=== PATIENT | female | born 1970 | race Caucasian/White ===

== ENCOUNTER 2020-05-06 19:53 | Inpatient (IN) ==
[2020-05-06 20:11] VITALS: BMI 35.4
--- NOTE | 2020-05-06 20:25 | DR.SOBA ---
HPI <ROSMERY JACOBO - Last Filed: 05/08/20 04:56> Time Seen Time Seen by Provider: 05/06/20 20:25 Primary Care Physician Primary Care Physician: ZHOU OROZCO HPI Comment HPI Comment: PATIENT IS 50 YR OLD FEMALE IS IN ER WITH INCREASING SOB, FEVER, COUGH AND CONGESTION. ALSO NAUSEA AND VOMITING. SHE TESTED POSITIVE YESTERDAY FOR COVID 19 VIRUS. ON DOXYCYCLINE AND DEXAMETHASONE. HER SOB IS GETTING IS WORSE. Complaints Chief Complaint Doctors Comments: FEVER, COUGH, CONGESTION, AND INCREASING SOB. COVID 19 VIRUS POSITIVE. Chief Complaint:: PATIENT TESTED POSITIVE FOR COVID YESTERDAY; PATIENT STATES SHORTNESS OF BREATH INCREASED TODAY; PATIENT STATES SHE HAS HAD A FEVER OF 101. PATIENT DENIES NAUSEA AND VOMITING. Self Treatment fo Chief Complaint: DEXAMETHASONE 4MG BID; LORATADINE 10MG DAILY; DOXYCYCLINE 100MG BID COVID-19 Coronavirus risk:travel/contact w/high risk person: No Has patient experienced Coronavirus symptoms: Yes Coronavirus symptoms experienced: Coughing Source History Provided: Patient Mode of Arrival Mode of Arrival: Wheelchair Timing Onset of Chief Complaint: 05/04/20 Duration Duration: Days Context Onset:: At Rest PE Risk Factors:: None History of:: None Currently on:: Neither Prehospital Care:: None Modifying Factors Worsens:: Exertion Improves:: Sitting Up Associated Signs and Symptoms Associated Signs and Symptoms: Fever, Wheeze, Cough and Chest Pain If Chest Pain Quality: Pleuritic Location: Substernal If Cough Cough: Productive and Yellow PMH <ROSMERY JACOBO - Last Filed: 05/08/20 04:56> PMH Past Medical History: Yes Past Medical History: Hypertension Past Surgical History: Yes Family History History of Family Medical Conditions: No Social History Alcohol Use: None Do you use any recreational Drugs:: No Lives With: Family Lives Where: Home Infectious screening Have you traveled outside the country in the last 6 months?: No Isolation: Droplet ROS <ROSMERY JACOBO - Last Filed: 05/08/20 04:56> Review of Systems Constitutional: See HPI, Fever, Weakness and Fatigue Eyes: No Symptoms Reported and See HPI; negative Blurred Vision and Diplopia ENTM: No Symptoms Reported, See HPI, Nose Discharge and Nose Congestion Respiratoy: No Symptoms Reported, See HPI, Productive Cough, Short of Breath and Wheezing Cardiovascular: No Symptoms Reported, See HPI and Chest Pain; negative Edema and Cyanosis Gastrointestinal/Abdominal: No Symptoms Reported and See HPI; negative Abdominal Pain, Diarrhea and Vomiting Genitourinary: No Symptoms Reported and See HPI; negative Dysuria, Frequency and Hematuria Neurological: See HPI, Headache and Weakness; negative Dizziness Musculoskeletal: See HPI, Back Pain and Muscle Pain Integumentary: No Symptoms Reported and See HPI; negative Change in Color, Rash and Juandice Hematologic/Lymphatic: No Symptoms Reported and See HPI; negative Easy Bruising and Swollen Glands Endocrine: No Symptoms Reported and See HPI; negative Increased Thirst, Increased Urine and Decreased Appetite Psychiatric: No Symptoms Reported and See HPI All Other Systems: Reviewed and Negative PE <ROSMERY JACOBO - Last Filed: 05/08/20 04:56> Vital Signs Vitals: Temperature 98.1 F Pulse Rate [Right Radial] 86 Pulse Rate 102 Respiratory Rate 24 Blood Pressure [Right Arm] 125/60 Blood Pressure 145/76 O2 Sat by Pulse Oximetry 90 General Limitations: No Limitations General Appearance: Alert and In Distress Head Head Exam: Normal Inspection and Atraumatic Eyes Eye exam: Normal Appearance and PERRL; negative Scleral Icterus and Conjunctival Injection ENT ENT Exam: Normal Exam, Normal Oropharynx, Normal External Ear Exam and TM's Normal Bilaterally Neck Neck Exam: Trachea Midline; negative Tenderness and Lymphadenopathy Chest Chest Inspection: Normal Inspection and Symmetric Chest Wall Rise Respiratory Respiratory Exam: negative Accessory Muscle Use, Chest Wall Tenderness and Respiratory Distress Cardiovascular Cardiovascular Exam: Normal Rhythm, Tachycardia and Normal Heart Sounds; negative Systolic Murmur and Diastolic Murmur Abdominal Exam Abdominal Exam: Normal Inspection, Normal Bowel Sounds and Soft; negative Tenderness Extremities Extremities Exam: Normal Inspection and Normal Capillary Refill; negative Tenderness, Edema and Calf Tenderness Back Back Exam: negative (R) CVA Tenderness, (L) CVA Tenderness and Paraspinal Tenderness Neurologic Neurological Exam: Alert, Oriented X3, CN II-XII Intact, Motor Sensory Deficit and Other (SLIGHT RT SIDED WEAKNESS FROM PREVIOUS STROKE.) Psychiatric Psychiatric Exam: Normal Affect and Anxious Skin Skin Exam: Warm, Dry, Intact and Normal Color; negative Cyanosis <Chadwick Bermudez - Last Filed: 05/07/20 08:57> Vital Signs Vitals: Temperature 98.1 F Pulse Rate [Right Radial] 86 Pulse Rate 102 Respiratory Rate 24 Blood Pressure [Right Arm] 125/60 Blood Pressure 145/76 O2 Sat by Pulse Oximetry 90 MDM <ROSMERY JACOBO - Last Filed: 05/08/20 04:56> Differential Diagnosis Differential Diagnosis: Bronchitis, CHF, Hyponatremia, Pneumonia, Pneumothorax, Pulmonary embolism, Respiratory Insufficiency, Sinusitis and URI Differential Diagnosis Comment:: COVID 19 VIRUS INFECTION, HYPERTENSION. COURSE <ROSMERY JACOBO - Last Filed: 05/08/20 04:56> Treatment Treatment: SEE ORDERS. ZOSYN 3.375MG, DUO NEN, NS 125MG IV, CLONIDINE 0.1MG. PATIENT OXYGEN MONITOR AND IS NOW PLACE ON NR MASK ON 100%. VITAL SIGNS REMAIN STABLE. SEE NURSING VITAL SIGN RECORD. NO BED CURRENTLY AVAILABLE IN THE HOSPITAL. AWITING CONFIRMATION FOR [facility] TO HAVE ER HOLD PATIENT PENDING BED OPENING. Reevaluation 1st: Improved (MONITORING OXYGGINATION BY ABG CHECK.) 2nd: Improved (VITAL SIGNS STABLE BUT BP INCREASING. CLONIDINE GIVEN.) Consultation Consultation Comments: AMITTED TO DR. MIRANDA. Education/Counseling Education/Counseling: Patient Educated On: Diagnosis ROR <ROSMERY JACOBO - Last Filed: 05/08/20 04:56> Labs Reviewed Laboratory Results Reviewed?: Yes Result Diagrams: 05/07/20 08:25 05/07/20 08:25 Laboratory: WBC 10.2 X10^3/uL (3.6-10.0) H 05/07/20 08:25 RBC 4.55 X10^6/uL (3.5-5.4) 05/07/20 08:25 Hgb 13.8 g/dL (12.0-16.0) 05/07/20 08:25 Hct 40.3 % (36.0-47.0) 05/07/20 08:25 MCV 88.6 fL (80.0-100.0) 05/07/20 08:25 MCH 30.4 pg (27.0-34.0) 05/07/20 08:25 MCHC 34.3 g/dL (33.0-35.0) 05/07/20 08:25 RDW 14.5 % (11.6-16.5) 05/07/20 08:25 Plt Count 257 X10^3/uL (150.0-450.0) 05/07/20 08:25 Plt Count Comment Adequate (ADEQUATE) 05/07/20 08:25 MPV 8.0 fL (7.4-11.0) 05/07/20 08:25 Neut % (Auto) 92.6 % (42.0-75.0) H 05/07/20 08:25 Lymph % (Auto) 6.1 % (21.0-51.0) L 05/07/20 08:25 [place] % (Auto) 1.2 % (0.0-13.0) 05/07/20 08:25 Eos % (Auto) 0.0 % (0.9-2.9) L 05/07/20 08:25 Baso % (Auto) 0.1 % (0.2-1.0) L 05/07/20 08:25 Neut # (Auto) 9.5 x10^3/uL (2.2-4.8) H 05/07/20 08:25 Lymph # (Auto) 0.6 X10^3/uL (1.3-2.9) L 05/07/20 08:25 [place] # (Auto) 0.1 x10^3/uL (0.3-0.8) L 05/07/20 08:25 Eos # (Auto) 0.0 x10^3/uL (0.0-0.2) 05/07/20 08:25 Baso # (Auto) 0.0 X10^3/uL (0.0-0.1) 05/07/20 08:25 Absolute Nucleated RBC 0.1 /100WBC 05/07/20 08:25 Total Counted 100 05/07/20 08:25 Neutrophils % (Manual) 85 % (39-76) H 05/07/20 08:25 Band Neutrophils % 3 % (0-10) 05/07/20 08:25 Lymphocytes % (Manual) 10 % (13-43) L 05/07/20 08:25 Monocytes % (Manual) 2 % (4-9) L 05/07/20 08:25 Plt Morphology Comment Normal (NORMAL) 05/07/20 08:25 RBC Morphology Normal (NORMAL) 05/07/20 08:25 Sample Site Lr 05/07/20 01:55 ABG pH 7.460 (7.35-7.45) H 05/07/20 01:55 ABG pCO2 41.0 mmHg (35.0-45.0) 05/07/20 01:55 ABG pO2 68.0 mmHg (80.0-100.0) L 05/07/20 01:55 ABG HCO3 29.2 mmol/L (22-26) H 05/07/20 01:55 ABG O2 Saturation 94.0 % (90-100) 05/07/20 01:55 ABG Base Excess 4.9 mmol/L (-2.0-2.0) H 05/07/20 01:55 [place] Test Pos 05/07/20 01:55 A-a Gradient 594.0 mmHg 05/07/20 01:55 FiO2 100.0 05/07/20 01:55 Blood Gas Comments Mary well ae 05/07/20 01:55 Sodium 139 mmol/L (136-145) 05/07/20 08:25 Corrected Sodium 141 mmol/L (136-145) 05/07/20 08:25 Potassium 3.6 mmol/L (3.5-5.1) 05/07/20 08:25 Chloride 100 mmol/L (98-107) 05/07/20 08:25 Carbon Dioxide 25.3 mmol/L (21-32) 05/07/20 08:25 BUN 12 mg/dL (7-18) 05/07/20 08:25 Creatinine 0.99 mg/dL (0.55-1.02) 05/07/20 08:25 Est GFR (MDRD) Af Amer > 60 (>60) 05/07/20 08:25 Est GFR (MDRD) Non-Af > 60 (>60) 05/07/20 08:25 Glucose 173 mg/dL (65-99) H 05/07/20 08:25 Lactic Acid 1.1 mmol/L (0.4-2.0) 05/06/20 23:20 Calcium 8.4 mg/dL (8.5-10.1) L 05/07/20 08:25 Corrected Calcium 9.3 mg/dL (8.5-10.1) 05/07/20 08:25 Total Bilirubin 0.60 mg/dL (0.2-1.0) 05/07/20 08:25 AST 49 Units/L (15-37) H 05/07/20 08:25 ALT 34 Units/L (12-78) 05/07/20 08:25 Alkaline Phosphatase 104 Units/L (46-116) 05/07/20 08:25 Creatine Kinase 67 Units/L (26-192) 05/07/20 08:25 CK-MB (CK-2) < 1.0 ng/mL (0-4.0) 05/07/20 08:25 CK/CKMB % Calc 1.5 % (<4) 05/07/20 08:25 Troponin I < 0.02 ng/mL (0-1.5) 05/07/20 08:25 Total Protein 7.1 g/dL (6.4-8.2) 05/07/20 08:25 Albumin 2.9 g/dL (3.4-5.0) L 05/07/20 08:25 Globulin 4.2 g/dL (2.5-4.5) 05/07/20 08:25 Albumin/Globulin Ratio 0.7 Ratio (1.1-2.1) L 05/07/20 08:25 HCG, Qual Negative <10 mIU/mL 05/06/20 21:00 SARS CoV-2 RNA Rapid MEGAN Positive (NEGATIVE) A 05/07/20 03:05 XRAY XRAY Interpreted by: Radiologist (reports noted and discussed with patient.) and Self EKG Rate: 95 Sellers: Normal Rhythm: NSR Block: None Hypertrophy: LAE and LVH ST: Nonsp <Chadwick Aidan - Last Filed: 05/07/20 08:57> Labs Reviewed Laboratory: WBC 10.2 X10^3/uL (3.6-10.0) H 05/07/20 08:25 RBC 4.55 X10^6/uL (3.5-5.4) 05/07/20 08:25 Hgb 13.8 g/dL (12.0-16.0) 05/07/20 08:25 Hct 40.3 % (36.0-47.0) 05/07/20 08:25 MCV 88.6 fL (80.0-100.0) 05/07/20 08:25 MCH 30.4 pg (27.0-34.0) 05/07/20 08:25 MCHC 34.3 g/dL (33.0-35.0) 05/07/20 08:25 RDW 14.5 % (11.6-16.5) 05/07/20 08:25 Plt Count 257 X10^3/uL (150.0-450.0) 05/07/20 08:25 Plt Count Comment Adequate (ADEQUATE) 05/07/20 08:25 MPV 8.0 fL (7.4-11.0) 05/07/20 08:25 Neut % (Auto) 92.6 % (42.0-75.0) H 05/07/20 08:25 Lymph % (Auto) 6.1 % (21.0-51.0) L 05/07/20 08:25 [place] % (Auto) 1.2 % (0.0-13.0) 05/07/20 08:25 Eos % (Auto) 0.0 % (0.9-2.9) L 05/07/20 08:25 Baso % (Auto) 0.1 % (0.2-1.0) L 05/07/20 08:25 Neut # (Auto) 9.5 x10^3/uL (2.2-4.8) H 05/07/20 08:25 Lymph # (Auto) 0.6 X10^3/uL (1.3-2.9) L 05/07/20 08:25 [place] # (Auto) 0.1 x10^3/uL (0.3-0.8) L 05/07/20 08:25 Eos # (Auto) 0.0 x10^3/uL (0.0-0.2) 05/07/20 08:25 Baso # (Auto) 0.0 X10^3/uL (0.0-0.1) 05/07/20 08:25 Absolute Nucleated RBC 0.1 /100WBC 05/07/20 08:25 Total Counted 100 05/07/20 08:25 Neutrophils % (Manual) 85 % (39-76) H 05/07/20 08:25 Band Neutrophils % 3 % (0-10) 05/07/20 08:25 Lymphocytes % (Manual) 10 % (13-43) L 05/07/20 08:25 Monocytes % (Manual) 2 % (4-9) L 05/07/20 08:25 Plt Morphology Comment Normal (NORMAL) 05/07/20 08:25 RBC Morphology Normal (NORMAL) 05/07/20 08:25 Sample Site Lr 05/07/20 01:55 ABG pH 7.460 (7.35-7.45) H 05/07/20 01:55 ABG pCO2 41.0 mmHg (35.0-45.0) 05/07/20 01:55 ABG pO2 68.0 mmHg (80.0-100.0) L 05/07/20 01:55 ABG HCO3 29.2 mmol/L (22-26) H 05/07/20 01:55 ABG O2 Saturation 94.0 % (90-100) 05/07/20 01:55 ABG Base Excess 4.9 mmol/L (-2.0-2.0) H 05/07/20 01:55 [place] Test Pos 05/07/20 01:55 A-a Gradient 594.0 mmHg 05/07/20 01:55 FiO2 100.0 05/07/20 01:55 Blood Gas Comments Mary well ae 05/07/20 01:55 Sodium 139 mmol/L (136-145) 05/07/20 08:25 Corrected Sodium 141 mmol/L (136-145) 05/07/20 08:25 Potassium 3.6 mmol/L (3.5-5.1) 05/07/20 08:25 Chloride 100 mmol/L (98-107) 05/07/20 08:25 Carbon Dioxide 25.3 mmol/L (21-32) 05/07/20 08:25 BUN 12 mg/dL (7-18) 05/07/20 08:25 Creatinine 0.99 mg/dL (0.55-1.02) 05/07/20 08:25 Est GFR (MDRD) Af Amer > 60 (>60) 05/07/20 08:25 Est GFR (MDRD) Non-Af > 60 (>60) 05/07/20 08:25 Glucose 173 mg/dL (65-99) H 05/07/20 08:25 Lactic Acid 1.1 mmol/L (0.4-2.0) 05/06/20 23:20 Calcium 8.4 mg/dL (8.5-10.1) L 05/07/20 08:25 Corrected Calcium 9.3 mg/dL (8.5-10.1) 05/07/20 08:25 Total Bilirubin 0.60 mg/dL (0.2-1.0) 05/07/20 08:25 AST 49 Units/L (15-37) H 05/07/20 08:25 ALT 34 Units/L (12-78) 05/07/20 08:25 Alkaline Phosphatase 104 Units/L (46-116) 05/07/20 08:25 Creatine Kinase 67 Units/L (26-192) 05/07/20 08:25 CK-MB (CK-2) < 1.0 ng/mL (0-4.0) 05/07/20 08:25 CK/CKMB % Calc 1.5 % (<4) 05/07/20 08:25 Troponin I < 0.02 ng/mL (0-1.5) 05/07/20 08:25 Total Protein 7.1 g/dL (6.4-8.2) 05/07/20 08:25 Albumin 2.9 g/dL (3.4-5.0) L 05/07/20 08:25 Globulin 4.2 g/dL (2.5-4.5) 05/07/20 08:25 Albumin/Globulin Ratio 0.7 Ratio (1.1-2.1) L 05/07/20 08:25 HCG, Qual Negative <10 mIU/mL 05/06/20 21:00 SARS CoV-2 RNA Rapid MEGAN Positive (NEGATIVE) A 05/07/20 03:05 Opioid <ROSMERY JACOBO - Last Filed: 05/08/20 04:56> Opioid Risk Tool Age ([place] box if 16-45): No Total: 0 Total Score Risk Category: Low Risk Copyright: Ike PARADA predicting aberrant behaviors <Chadwick Bermudez - Last Filed: 05/07/20 08:57> Opioid Risk Tool Total: 0 Total Score Risk Category: Low Risk <ROSMERY JACOBO - Last Filed: 05/08/20 04:56> Diagnosis Discharge Problem: Hypoxia, Hypokalemia, COVID-19 virus infection Pneumonia Qualifiers: Pneumonia type: due to unspecified organism Laterality: bilateral Lung location: lower lobe of lung Qualified Code(s): J18.9 - Pneumonia, unspecified organism Hypertension Qualifiers: Hypertension type: essential hypertension Qualified Code(s): I10 - Essential (primary) hypertension Instructions Instructions: Shortness of Breath, Adult, Gswk-[id number] Incentive Spirometer Hand Washing, Nhgl-tb-Bpbb Upper Respiratory Infection, Adult, Dczk-wx-Dsus Hypoxia Droplet Precautions, Iutv-hg-Gdzl Contact Precautions, Plfb-gj-Hrak Community-Acquired Pneumonia, Adult, Uqem-tg-Kerx Forms: Excuse From Work or School Precautions for COVID19 Patient Portal Social Distancing <Chadwick Bermudez - Last Filed: 05/07/20 08:57> Additional Notes Additional Notes: 0856: handed over care by dr jacobo. Patient w/ recent covid dx. CAP, hypoxemia on supp o2. Discussed all details of case w/ dr miranda whom agrees to admit.
[2020-05-06 21:00] LABS: ABG BASE EXCESS 5.6 mmol/L (-2.0-2.0); ABG HCO3 29.8 mmol/L (22-26)
[2020-05-06 21:01] LABS: ABG ALLEN TEST POS
[2020-05-06 21:23] LABS: ALANINE AMINOTRANSFERASE 33 Units/L (12-78); ALBUMIN 2.9 g/dL (3.4-5.0); ALKALINE PHOSPHATASE 87 Units/L (46-116); ASPARTATE AMINO TRANSFERASE 42 Units/L (15-37); BASOPHILS % (AUTO) 0.1 % (0.2-1.0); BLOOD UREA NITROGEN 16 mg/dL (7-18); CALCIUM 8.7 mg/dL (8.5-10.1); CARBON DIOXIDE 30.2 mmol/L (21-32); CHLORIDE 101 mmol/L (98-107); COR CA(FOR HYPOALB) 9.6 mg/dL (8.5-10.1); CREATININE 0.85 mg/dL (0.55-1.02); HEMATOCRIT 39.8 % (36.0-47.0); HEMOGLOBIN 13.5 g/dL (12.0-16.0); LYMPHOCYTES # (AUTO) 1.3 X10^3/uL (1.3-2.9); LYMPHOCYTES % (AUTO) 15.1 % (21.0-51.0); MEAN CORPUSCULAR HGB CONC 33.8 g/dL (33.0-35.0); MEAN CORPUSCULAR VOLUME 88.8 fL (80.0-100.0); MEAN PLATELET VOLUME 8.1 fL (7.4-11.0); MONOCYTES # (AUTO) 0.3 x10^3/uL (0.3-0.8); MONOCYTES % (AUTO) 3.2 % (0.0-13.0); NEUTROPHILS # (AUTO) 7.2 x10^3/uL (2.2-4.8); NEUTROPHILS % (AUTO) 81.6 % (42.0-75.0); PLATELET COUNT 245 X10^3/uL (150.0-450.0); RED BLOOD COUNT 4.48 X10^6/uL (3.5-5.4); RED CELL DISTRIBUTION WIDTH 14.4 % (11.6-16.5); SODIUM 139 mmol/L (136-145); TOTAL PROTEIN 6.7 g/dL (6.4-8.2); WHITE BLOOD COUNT 8.8 X10^3/uL (3.6-10.0); eGFR NON BLACK RACES > 60 (>60)
--- NOTE | 2020-05-06 21:25 | RAD ---
CHEST, 1 VIEWHISTORY: COVID, SOB, FEVERStudy: Single view of the chest.Comparison:NoneFindings:The cardiomediastinal silhouette is normal. Bilateral interstitial prominence, possible early alveolar infiltrates. No focal consolidations, pleural effusions or pneumothorax. Osseous structures demonstrate no acute abnormality.IMPRESSION:1. Bilateral interstitial prominence and early alveolar infiltrates. Findings may represent atypical infection, including viral etiologies.Electronically signed by: KIMBERLY RODRIGUEZ (May 06, 2020 21:23:58)
[2020-05-06 21:27] LABS: SERUM PREGNANCY TEST, QUAL NEGATIVE <10 mIU/mL
[2020-05-06] MEDS ORDERED: ZOSYN VIAL 3.375 GRAMS 3.375 G in NS 100 ML IV + SPIKE MINIBAG* 100 ML IV ONE (23:03)
[2020-05-06] MEDS ORDERED: ZOSYN VIAL 3.375 GRAMS IV ONE (23:53)
[2020-05-06] MEDS ORDERED: NS 1000 ML 1,000 ML ONE (23:53)
[2020-05-06] MEDS ORDERED: NS 100 ML IV + SPIKE MINIBAG* 100 ML IV ONE (23:54)
[2020-05-07] MEDS ORDERED: NS 1000 ML 1,000 ML IV ONE (00:11)
[2020-05-07 00:22] LABS: ABG BASE EXCESS 5.8 mmol/L (-2.0-2.0); ABG HCO3 29.8 mmol/L (22-26)
[2020-05-07 00:23] LABS: ABG ALLEN TEST POS
[2020-05-07 02:00] LABS: ABG BASE EXCESS 4.9 mmol/L (-2.0-2.0); ABG HCO3 29.2 mmol/L (22-26)
[2020-05-07 02:01] LABS: ABG ALLEN TEST POS
[2020-05-07] MEDS ORDERED: NS 100 ML IV 100 ML IV ONE ×2 (02:56→08:22)
[2020-05-07] MEDS ORDERED: SOLU-Medrol 125 MG VIAL IVP ONE (03:13)
[2020-05-07] MEDS ORDERED: DUONEB 0.5 MG/3 MG (3 mL) NEB ONE (03:13)
[2020-05-07] MEDS ORDERED: CATAPRES TAB 0.1 MG ONE ×2 (03:38→08:21)
[2020-05-07] MEDS ORDERED: SOLU-Medrol 125 MG VIAL ONE (03:38)
[2020-05-07] MEDS: CATAPRES TAB 0.1 MG PO ONE ×2 (03:46→16:40)
[2020-05-07] MEDS ORDERED: KLOR-CON PO ONE (04:39)
--- NOTE | 2020-05-07 04:41 | CT ---
HISTORYPT COVID+ AND C/O INCREASING SOBSTUDYCTA CHESTCOMPARISONChest radiograph 05/06/2020TECHNIQUEMultiple axial images of the chest were obtained from the thoracic inlet to the upper abdomen after the administration of IV contrast. 3D reconstructions utilizing axial MIPS imaging was performed and reviewed. Dose reduction techniques including Automated Exposure Control (AEC) and adjustment of mA and kV were utilized.FINDINGSThe mediastinum does not demonstrate significant pathological lymphadenopathy. There is no paracardial effusion observed. The thoracic aorta is normal in its contour without evidence for aneurysmal dilatation. The central pulmonary arterial system does not demonstrate central filling defects to suggest pulmonary emboli.Evaluation of the lung parenchyma demonstrates extensive patchy airspace disease bilaterally involving the upper and lower lobes. No pleural effusion or pneumothorax.. No pulmonary nodule or mass can be identified. The bony thorax is unremarkable in its appearance . The visualized portions of the upper abdomen are grossly unremarkable .IMPRESSIONUnremarkable CTA of the thoracic aorta and pulmonary arteries.Extensive bilateral patchy airspace disease involving the upper and lower lobes consistent with multifocal pneumonia.Electronically signed by: Fidel Marin (May 07, 2020 04:39:45)
[2020-05-07] MEDS ORDERED: KLOR-CON ONE (05:00)
[2020-05-07] MEDS: DUONEB 0.5 MG/3 MG (3 mL) NEB SCH ×4 (08:19→20:45)
[2020-05-07] MEDS ORDERED: ZOSYN VIAL 3.375 GRAMS IV ONE (08:21)
[2020-05-07 08:40] LABS: BASOPHILS % (AUTO) 0.1 % (0.2-1.0); HEMATOCRIT 40.3 % (36.0-47.0); HEMOGLOBIN 13.8 g/dL (12.0-16.0); LYMPHOCYTES # (AUTO) 0.6 X10^3/uL (1.3-2.9); LYMPHOCYTES % (AUTO) 6.1 % (21.0-51.0); MEAN CORPUSCULAR HEMOGLOBIN 30.4 pg (27.0-34.0); MEAN CORPUSCULAR HGB CONC 34.3 g/dL (33.0-35.0); MEAN CORPUSCULAR VOLUME 88.6 fL (80.0-100.0); MONOCYTES # (AUTO) 0.1 x10^3/uL (0.3-0.8); MONOCYTES % (AUTO) 1.2 % (0.0-13.0); NEUTROPHILS # (AUTO) 9.5 x10^3/uL (2.2-4.8); NEUTROPHILS % (AUTO) 92.6 % (42.0-75.0); PLATELET COUNT 257 X10^3/uL (150.0-450.0); RED BLOOD COUNT 4.55 X10^6/uL (3.5-5.4); RED CELL DISTRIBUTION WIDTH 14.5 % (11.6-16.5); WHITE BLOOD COUNT 10.2 X10^3/uL (3.6-10.0)
[2020-05-07 08:48] LABS: ALANINE AMINOTRANSFERASE 34 Units/L (12-78); ALBUMIN 2.9 g/dL (3.4-5.0); ALKALINE PHOSPHATASE 104 Units/L (46-116); ASPARTATE AMINO TRANSFERASE 49 Units/L (15-37); BLOOD UREA NITROGEN 12 mg/dL (7-18); CALCIUM 8.4 mg/dL (8.5-10.1); CARBON DIOXIDE 25.3 mmol/L (21-32); CHLORIDE 100 mmol/L (98-107); COR CA(FOR HYPOALB) 9.3 mg/dL (8.5-10.1); COR NA(FOR HYPERGLY) 141 mmol/L (136-145); CREATININE 0.99 mg/dL (0.55-1.02); SODIUM 139 mmol/L (136-145); TOTAL PROTEIN 7.1 g/dL (6.4-8.2); eGFR NON BLACK RACES > 60 (>60)
[2020-05-07] MEDS ORDERED: IVERMECTIN PO ONE (08:51)
[2020-05-07] MEDS ORDERED: VITAMIN A PO SCH (09:00)
[2020-05-07] MEDS ORDERED: VITAMIN D (1.25MG) PO SCH (09:00)
[2020-05-07 09:01] LABS: CKMB % 1.5 % (<4); CREATINE KINASE 67 Units/L (26-192); CREATINE KINASE MB < 1.0 ng/mL (0-4.0); TROPONIN I < 0.02 ng/mL (0-1.5)
[2020-05-07 09:04] LABS: BAND NEUTROPHILS % 3 % (0-10)
[2020-05-07 09:05] LABS: PLATELET MORPHOLOGY COMMENT NORMAL (NORMAL)
[2020-05-07] MEDS: PEPCID TAB 20 MG PO SCH ×2 (10:14→22:01)
[2020-05-07] MEDS: CATAPRES TAB 0.2 MG PO SCH ×2 (10:14→22:30)
[2020-05-07] MEDS: THIAMINE HCL INJ IVP SCH ×2 (10:14→22:02)
[2020-05-07] MEDS: ZINC SULFATE PO SCH ×2 (10:14→22:02)
[2020-05-07] MEDS: ASCORBIC ACID INJ MULTI-DOSE VIAL 1,500 MG in NS 100 ML IV 100 ML IV SCH ×3 (10:15→21:58)
[2020-05-07] MEDS: NS 1000 ML 1,000 ML IV SCH (10:15)
[2020-05-07] MEDS: LIPITOR TAB 40 MG PO SCH (10:15)
[2020-05-07] MEDS: LOVENOX INJ 30 MG SYR SC SCH ×2 (10:45→21:58)
[2020-05-07] MEDS: ZOSYN VIAL 3.375 GRAMS 3.375 G in NS 100 ML IV + SPIKE MINIBAG* 100 ML IV SCH ×3 (10:45→22:01)
[2020-05-07] MEDS: VIBRAMYCIN PO SCH ×2 (10:45→22:02)
[2020-05-07] MEDS: REMDESIVIR 200 MG in NS 250 ML IV 250 ML IV SCH (11:00)
[2020-05-07] MEDS ORDERED: SOLU-Medrol 40 MG VIAL IVP SCH (14:00)
[2020-05-07] MEDS ORDERED: IVERMECTIN PO SCH (15:00)
[2020-05-07] MEDS: SOLU-Medrol 125 MG VIAL IVP SCH ×2 (16:39→22:01)
[2020-05-07] MEDS: IVERMECTIN PO SCH (16:40)
[2020-05-08] MEDS: DUONEB 0.5 MG/3 MG (3 mL) NEB SCH ×6 (01:07→21:15)
[2020-05-08] MEDS: ASCORBIC ACID INJ MULTI-DOSE VIAL 1,500 MG in NS 100 ML IV 100 ML IV SCH ×4 (03:50→21:01)
[2020-05-08] MEDS: ZOSYN VIAL 3.375 GRAMS 3.375 G in NS 100 ML IV + SPIKE MINIBAG* 100 ML IV SCH ×3 (05:12→21:03)
[2020-05-08] MEDS: SOLU-Medrol 125 MG VIAL IVP SCH ×3 (05:12→21:02)
--- NOTE | 2020-05-08 05:41 | RAD ---
HISTORYcovidSTUDYAP [id number]/31/2020FINDINGSThere is no significant change in appearance of heart or lungs. Similar extent and distribution of interstitial infiltrates. No new areas of consolidation or developing pleural fluid.IMPRESSIONNo change since prior.Electronically signed by: ADDIE AMEZQUITA (May 08, 2020 05:39:39)
[2020-05-08 07:06] LABS: ALANINE AMINOTRANSFERASE 27 Units/L (12-78); ALBUMIN 2.2 g/dL (3.4-5.0); ALKALINE PHOSPHATASE 81 Units/L (46-116); ASPARTATE AMINO TRANSFERASE 40 Units/L (15-37); BLOOD UREA NITROGEN 14 mg/dL (7-18); CARBON DIOXIDE 25.7 mmol/L (21-32); CHLORIDE 107 mmol/L (98-107); COR CA(FOR HYPOALB) 9.4 mg/dL (8.5-10.1); COR NA(FOR HYPERGLY) 143 mmol/L (136-145); CREATININE 0.69 mg/dL (0.55-1.02); SODIUM 142 mmol/L (136-145); TOTAL PROTEIN 5.9 g/dL (6.4-8.2); eGFR NON BLACK RACES > 60 (>60)
[2020-05-08 07:07] LABS: BASOPHILS % (AUTO) 0.1 % (0.2-1.0); HEMATOCRIT 36.3 % (36.0-47.0); HEMOGLOBIN 12.5 g/dL (12.0-16.0); LYMPHOCYTES # (AUTO) 0.7 X10^3/uL (1.3-2.9); LYMPHOCYTES % (AUTO) 10.4 % (21.0-51.0); MEAN CORPUSCULAR HEMOGLOBIN 30.4 pg (27.0-34.0); MEAN CORPUSCULAR HGB CONC 34.3 g/dL (33.0-35.0); MEAN CORPUSCULAR VOLUME 88.7 fL (80.0-100.0); MEAN PLATELET VOLUME 8.1 fL (7.4-11.0); MONOCYTES # (AUTO) 0.3 x10^3/uL (0.3-0.8); MONOCYTES % (AUTO) 4.1 % (0.0-13.0); NEUTROPHILS # (AUTO) 5.6 x10^3/uL (2.2-4.8); NEUTROPHILS % (AUTO) 85.4 % (42.0-75.0); PLATELET COUNT 273 X10^3/uL (150.0-450.0); RED BLOOD COUNT 4.09 X10^6/uL (3.5-5.4); RED CELL DISTRIBUTION WIDTH 14.5 % (11.6-16.5); WHITE BLOOD COUNT 6.6 X10^3/uL (3.6-10.0)
[2020-05-08] MEDS: REMDESIVIR 200 MG in NS 250 ML IV 250 ML IV SCH ×2 (08:42→08:44)
[2020-05-08] MEDS: ZINC SULFATE PO SCH ×2 (08:45→21:02)
[2020-05-08] MEDS: VIBRAMYCIN PO SCH ×2 (08:46→21:24)
[2020-05-08] MEDS: PEPCID TAB 20 MG PO SCH ×2 (08:47→21:24)
[2020-05-08] MEDS: LOVENOX INJ 30 MG SYR SC SCH ×2 (08:47→21:03)
[2020-05-08] MEDS: CATAPRES TAB 0.2 MG PO SCH ×2 (08:48→21:24)
[2020-05-08] MEDS: NS 1000 ML 1,000 ML IV SCH (08:48)
[2020-05-08] MEDS: THIAMINE HCL INJ IVP SCH ×2 (08:49→21:24)
[2020-05-08] MEDS: LIPITOR TAB 40 MG PO SCH (08:49)
[2020-05-09] MEDS: DUONEB 0.5 MG/3 MG (3 mL) NEB SCH ×6 (00:10→20:20)
[2020-05-09] MEDS: ASCORBIC ACID INJ MULTI-DOSE VIAL 1,500 MG in NS 100 ML IV 100 ML IV SCH ×4 (03:17→22:30)
[2020-05-09] MEDS: SOLU-Medrol 125 MG VIAL IVP SCH ×3 (05:42→22:41)
[2020-05-09 06:01] LABS: BASOPHILS % (AUTO) 0.1 % (0.2-1.0); HEMATOCRIT 35.1 % (36.0-47.0); HEMOGLOBIN 11.7 g/dL (12.0-16.0); LYMPHOCYTES # (AUTO) 0.7 X10^3/uL (1.3-2.9); LYMPHOCYTES % (AUTO) 6.2 % (21.0-51.0); MEAN CORPUSCULAR HEMOGLOBIN 29.7 pg (27.0-34.0); MEAN CORPUSCULAR HGB CONC 33.4 g/dL (33.0-35.0); MONOCYTES # (AUTO) 0.3 x10^3/uL (0.3-0.8); MONOCYTES % (AUTO) 3.1 % (0.0-13.0); NEUTROPHILS # (AUTO) 9.6 x10^3/uL (2.2-4.8); NEUTROPHILS % (AUTO) 90.6 % (42.0-75.0); PLATELET COUNT 306 X10^3/uL (150.0-450.0); RED BLOOD COUNT 3.95 X10^6/uL (3.5-5.4); RED CELL DISTRIBUTION WIDTH 14.5 % (11.6-16.5); WHITE BLOOD COUNT 10.6 X10^3/uL (3.6-10.0)
[2020-05-09] MEDS: ZOSYN VIAL 3.375 GRAMS 3.375 G in NS 100 ML IV + SPIKE MINIBAG* 100 ML IV SCH ×2 (06:05→15:36)
[2020-05-09 06:07] LABS: ALANINE AMINOTRANSFERASE 25 Units/L (12-78); ALBUMIN 2.1 g/dL (3.4-5.0); ALKALINE PHOSPHATASE 87 Units/L (46-116); ASPARTATE AMINO TRANSFERASE 50 Units/L (15-37); BLOOD UREA NITROGEN 19 mg/dL (7-18); CARBON DIOXIDE 26.8 mmol/L (21-32); CHLORIDE 108 mmol/L (98-107); COR CA(FOR HYPOALB) 9.5 mg/dL (8.5-10.1); COR NA(FOR HYPERGLY) 145 mmol/L (136-145); CREATININE 0.77 mg/dL (0.55-1.02); SODIUM 143 mmol/L (136-145); TOTAL PROTEIN 5.6 g/dL (6.4-8.2); eGFR NON BLACK RACES > 60 (>60)
[2020-05-09 07:17] LABS: BAND NEUTROPHILS % 4 % (0-10); PLATELET MORPHOLOGY COMMENT NORMAL (NORMAL)
[2020-05-09] MEDS ORDERED: NS 50 ML IV 50 ML IV ONE (09:37)
[2020-05-09] MEDS: CATAPRES TAB 0.2 MG PO SCH ×2 (10:00→20:00)
[2020-05-09] MEDS: LIPITOR TAB 40 MG PO SCH (10:00)
[2020-05-09] MEDS: PEPCID TAB 20 MG PO SCH ×2 (10:01→22:44)
[2020-05-09] MEDS: LOVENOX INJ 30 MG SYR SC SCH ×2 (10:01→22:41)
[2020-05-09] MEDS: NS 1000 ML 1,000 ML IV SCH (10:01)
[2020-05-09] MEDS: THIAMINE HCL INJ IVP SCH ×2 (10:02→22:43)
[2020-05-09] MEDS: REMDESIVIR 200 MG in NS 250 ML IV 250 ML IV SCH (10:02)
[2020-05-09] MEDS: VIBRAMYCIN PO SCH ×2 (10:02→22:30)
[2020-05-09] MEDS: VITAMIN A PO SCH (10:03)
[2020-05-09] MEDS: VITAMIN D3 125 mcg (5,000 UNITS) PO SCH (10:03)
[2020-05-09] MEDS: ZINC SULFATE PO SCH ×2 (10:03→22:30)
[2020-05-09] MEDS: IVERMECTIN PO SCH (15:39)
[2020-05-09] MEDS: ZOSYN VIAL 4.5 GRAMS 4.5 G in NS 100 ML IV + SPIKE MINIBAG* 100 ML IV SCH (22:41)
[2020-05-10] MEDS: DUONEB 0.5 MG/3 MG (3 mL) NEB SCH ×6 (01:45→20:53)
[2020-05-10] MEDS: ASCORBIC ACID INJ MULTI-DOSE VIAL 1,500 MG in NS 100 ML IV 100 ML IV SCH ×4 (02:07→22:00)
[2020-05-10] MEDS: ZOSYN VIAL 4.5 GRAMS 4.5 G in NS 100 ML IV + SPIKE MINIBAG* 100 ML IV SCH ×3 (05:08→22:08)
[2020-05-10] MEDS: SOLU-Medrol 125 MG VIAL IVP SCH ×3 (05:08→22:00)
[2020-05-10 06:39] LABS: ALANINE AMINOTRANSFERASE 19 Units/L (12-78); ALBUMIN 2.1 g/dL (3.4-5.0); ALKALINE PHOSPHATASE 87 Units/L (46-116); ASPARTATE AMINO TRANSFERASE 39 Units/L (15-37); BLOOD UREA NITROGEN 23 mg/dL (7-18); CALCIUM 8.2 mg/dL (8.5-10.1); CARBON DIOXIDE 25.7 mmol/L (21-32); CHLORIDE 109 mmol/L (98-107); COR CA(FOR HYPOALB) 9.7 mg/dL (8.5-10.1); COR NA(FOR HYPERGLY) 146 mmol/L (136-145); CREATININE 0.71 mg/dL (0.55-1.02); SODIUM 144 mmol/L (136-145); TOTAL PROTEIN 5.5 g/dL (6.4-8.2); eGFR NON BLACK RACES > 60 (>60)
[2020-05-10 08:02] LABS: BASOPHILS % (AUTO) 0.2 % (0.2-1.0); HEMATOCRIT 35.7 % (36.0-47.0); HEMOGLOBIN 12.1 g/dL (12.0-16.0); LYMPHOCYTES # (AUTO) 0.6 X10^3/uL (1.3-2.9); LYMPHOCYTES % (AUTO) 5.4 % (21.0-51.0); MEAN CORPUSCULAR HEMOGLOBIN 29.8 pg (27.0-34.0); MEAN CORPUSCULAR HGB CONC 33.8 g/dL (33.0-35.0); MEAN CORPUSCULAR VOLUME 88.4 fL (80.0-100.0); MEAN PLATELET VOLUME 7.9 fL (7.4-11.0); MONOCYTES # (AUTO) 0.6 x10^3/uL (0.3-0.8); MONOCYTES % (AUTO) 5.9 % (0.0-13.0); NEUTROPHILS # (AUTO) 9.1 x10^3/uL (2.2-4.8); NEUTROPHILS % (AUTO) 88.5 % (42.0-75.0); PLATELET COUNT 329 X10^3/uL (150.0-450.0); RED BLOOD COUNT 4.04 X10^6/uL (3.5-5.4); WHITE BLOOD COUNT 10.3 X10^3/uL (3.6-10.0)
[2020-05-10] MEDS: VIBRAMYCIN PO SCH ×2 (09:45→22:00)
[2020-05-10] MEDS: ZINC SULFATE PO SCH ×2 (09:45→22:00)
[2020-05-10] MEDS: THIAMINE HCL INJ IVP SCH ×2 (09:45→22:00)
[2020-05-10] MEDS: PEPCID TAB 20 MG PO SCH ×2 (09:45→22:07)
[2020-05-10] MEDS: VITAMIN D3 125 mcg (5,000 UNITS) PO SCH (09:45)
[2020-05-10] MEDS: VITAMIN A PO SCH (09:45)
[2020-05-10] MEDS: LIPITOR TAB 40 MG PO SCH (09:45)
[2020-05-10] MEDS: LOVENOX INJ 30 MG SYR SC SCH ×2 (10:12→22:07)
[2020-05-10] MEDS: NS 1000 ML 1,000 ML IV SCH (10:13)
[2020-05-10] MEDS: BENICAR TAB 40 MG PO SCH (10:16)
[2020-05-10] MEDS: REMDESIVIR 100 MG in NS 250 ML IV 250 ML IV SCH (10:16)
[2020-05-10] MEDS: NORVASC TAB 5 MG PO SCH (10:16)
[2020-05-10] MEDS: CATAPRES TAB 0.2 MG PO PRN (20:00)
[2020-05-11] MEDS: DUONEB 0.5 MG/3 MG (3 mL) NEB SCH ×5 (01:00→21:59)
[2020-05-11] MEDS: ASCORBIC ACID INJ MULTI-DOSE VIAL 1,500 MG in NS 100 ML IV 100 ML IV SCH ×4 (03:15→21:33)
[2020-05-11] MEDS: ZOSYN VIAL 4.5 GRAMS 4.5 G in NS 100 ML IV + SPIKE MINIBAG* 100 ML IV SCH ×3 (05:56→21:36)
[2020-05-11 05:58] LABS: BASOPHILS % (AUTO) 0.1 % (0.2-1.0); HEMATOCRIT 35.7 % (36.0-47.0); HEMOGLOBIN 11.9 g/dL (12.0-16.0); LYMPHOCYTES # (AUTO) 0.6 X10^3/uL (1.3-2.9); LYMPHOCYTES % (AUTO) 3.7 % (21.0-51.0); MEAN CORPUSCULAR HEMOGLOBIN 29.4 pg (27.0-34.0); MEAN CORPUSCULAR HGB CONC 33.2 g/dL (33.0-35.0); MEAN CORPUSCULAR VOLUME 88.4 fL (80.0-100.0); MEAN PLATELET VOLUME 8.1 fL (7.4-11.0); MONOCYTES # (AUTO) 0.6 x10^3/uL (0.3-0.8); MONOCYTES % (AUTO) 3.8 % (0.0-13.0); NEUTROPHILS # (AUTO) 15.5 x10^3/uL (2.2-4.8); NEUTROPHILS % (AUTO) 92.4 % (42.0-75.0); PLATELET COUNT 307 X10^3/uL (150.0-450.0); RED BLOOD COUNT 4.04 X10^6/uL (3.5-5.4); RED CELL DISTRIBUTION WIDTH 14.3 % (11.6-16.5); WHITE BLOOD COUNT 16.7 X10^3/uL (3.6-10.0)
[2020-05-11 06:15] LABS: ALANINE AMINOTRANSFERASE 22 Units/L (12-78); ALBUMIN 2.2 g/dL (3.4-5.0); ALKALINE PHOSPHATASE 89 Units/L (46-116); ASPARTATE AMINO TRANSFERASE 35 Units/L (15-37); BLOOD UREA NITROGEN 26 mg/dL (7-18); CALCIUM 8.1 mg/dL (8.5-10.1); CARBON DIOXIDE 26.3 mmol/L (21-32); CHLORIDE 109 mmol/L (98-107); COR CA(FOR HYPOALB) 9.5 mg/dL (8.5-10.1); COR NA(FOR HYPERGLY) 147 mmol/L (136-145); CREATININE 0.72 mg/dL (0.55-1.02); SODIUM 145 mmol/L (136-145); TOTAL PROTEIN 5.5 g/dL (6.4-8.2); eGFR NON BLACK RACES > 60 (>60)
[2020-05-11 07:01] LABS: BAND NEUTROPHILS % 2 % (0-10); PLATELET MORPHOLOGY COMMENT NORMAL (NORMAL)
[2020-05-11] MEDS: VITAMIN A PO SCH (09:00)
[2020-05-11] MEDS: BENICAR TAB 40 MG PO SCH (09:02)
[2020-05-11] MEDS: LOVENOX INJ 30 MG SYR SC SCH ×2 (09:03→21:34)
[2020-05-11] MEDS: LIPITOR TAB 40 MG PO SCH (09:03)
[2020-05-11] MEDS: PEPCID TAB 20 MG PO SCH ×2 (09:04→21:35)
[2020-05-11] MEDS: NORVASC TAB 5 MG PO SCH (09:04)
[2020-05-11] MEDS: SOLU-Medrol 125 MG VIAL IVP SCH ×2 (09:04→21:52)
[2020-05-11] MEDS: THIAMINE HCL INJ IVP SCH ×2 (09:05→21:35)
[2020-05-11] MEDS: VITAMIN D3 125 mcg (5,000 UNITS) PO SCH (09:06)
[2020-05-11] MEDS: ZINC SULFATE PO SCH ×2 (09:06→21:36)
[2020-05-11] MEDS: VIBRAMYCIN PO SCH ×2 (09:06→21:36)
[2020-05-11] MEDS: REMDESIVIR 100 MG in NS 250 ML IV 250 ML IV SCH (10:18)
[2020-05-11] MEDS: NS 1000 ML 1,000 ML IV SCH (10:20)
[2020-05-11] MEDS: IVERMECTIN PO SCH (15:09)
[2020-05-11] MEDS: COLACE CAP 100 MG PO SCH (21:34)
[2020-05-11] MEDS: MILK OF MAGNESIA PO SCH ×2 (21:35→21:53)
[2020-05-12] MEDS: DUONEB 0.5 MG/3 MG (3 mL) NEB SCH ×6 (01:30→21:10)
[2020-05-12] MEDS: ASCORBIC ACID INJ MULTI-DOSE VIAL 1,500 MG in NS 100 ML IV 100 ML IV SCH ×4 (03:55→21:30)
[2020-05-12 05:20] LABS: ABG ALLEN TEST POSS; ABG BASE EXCESS 5.6 mmol/L (-2.0-2.0); ABG HCO3 29.8 mmol/L (22-26)
[2020-05-12 05:45] LABS: BASOPHILS % (AUTO) 0 % (0.2-1.0); HEMATOCRIT 37.2 % (36.0-47.0); HEMOGLOBIN 12.5 g/dL (12.0-16.0); LYMPHOCYTES # (AUTO) 0.5 X10^3/uL (1.3-2.9); LYMPHOCYTES % (AUTO) 2.6 % (21.0-51.0); MEAN CORPUSCULAR HEMOGLOBIN 29.4 pg (27.0-34.0); MEAN CORPUSCULAR HGB CONC 33.6 g/dL (33.0-35.0); MEAN CORPUSCULAR VOLUME 87.6 fL (80.0-100.0); MEAN PLATELET VOLUME 8.4 fL (7.4-11.0); MONOCYTES # (AUTO) 0.4 x10^3/uL (0.3-0.8); MONOCYTES % (AUTO) 2.5 % (0.0-13.0); NEUTROPHILS # (AUTO) 16.8 x10^3/uL (2.2-4.8); NEUTROPHILS % (AUTO) 94.9 % (42.0-75.0); PLATELET COUNT 292 X10^3/uL (150.0-450.0); RED BLOOD COUNT 4.25 X10^6/uL (3.5-5.4); RED CELL DISTRIBUTION WIDTH 14.1 % (11.6-16.5); WHITE BLOOD COUNT 17.8 X10^3/uL (3.6-10.0)
[2020-05-12 05:47] LABS: ALANINE AMINOTRANSFERASE 24 Units/L (12-78); ALBUMIN 2.2 g/dL (3.4-5.0); ALKALINE PHOSPHATASE 103 Units/L (46-116); ASPARTATE AMINO TRANSFERASE 46 Units/L (15-37); BLOOD UREA NITROGEN 20 mg/dL (7-18); CALCIUM 8.1 mg/dL (8.5-10.1); CARBON DIOXIDE 29.7 mmol/L (21-32); CHLORIDE 107 mmol/L (98-107); COR CA(FOR HYPOALB) 9.5 mg/dL (8.5-10.1); COR NA(FOR HYPERGLY) 144 mmol/L (136-145); CREATININE 0.66 mg/dL (0.55-1.02); SODIUM 143 mmol/L (136-145); TOTAL PROTEIN 5.7 g/dL (6.4-8.2); eGFR NON BLACK RACES > 60 (>60)
[2020-05-12] MEDS: ZOSYN VIAL 4.5 GRAMS 4.5 G in NS 100 ML IV + SPIKE MINIBAG* 100 ML IV SCH ×3 (05:50→22:00)
[2020-05-12 06:42] LABS: BAND NEUTROPHILS % 5 % (0-10); PLATELET MORPHOLOGY COMMENT NORMAL (NORMAL)
--- NOTE | 2020-05-12 08:10 | RAD ---
HISTORYCOVID, F/USTUDYCHEST, 1 [id number]/02/2021FINDINGSThere is more opacity in the lungs than previously. Today this appears diffuse and bilateral.Given the appearance on the CT from 05/07/2020, this most likely represents a progression of pneumonia.No significant effusion. No pneumothorax.The heart size is magnified.Bones are unremarkable.EKG leads are noted.IMPRESSION1. Progressed pneumoniaElectronically signed by: Edouard Benton (May 12, 2020 08:09:32)
[2020-05-12] MEDS: LOVENOX INJ 30 MG SYR SC SCH ×2 (09:53→22:13)
[2020-05-12] MEDS: BENICAR TAB 40 MG PO SCH (09:53)
[2020-05-12] MEDS: NS 1000 ML 1,000 ML IV SCH (09:54)
[2020-05-12] MEDS: NORVASC TAB 5 MG PO SCH (09:54)
[2020-05-12] MEDS: PEPCID TAB 20 MG PO SCH ×2 (09:54→21:30)
[2020-05-12] MEDS: THIAMINE HCL INJ IVP SCH ×2 (09:55→21:30)
[2020-05-12] MEDS: VITAMIN D3 125 mcg (5,000 UNITS) PO SCH (09:55)
[2020-05-12] MEDS: SOLU-Medrol 125 MG VIAL IVP SCH ×2 (09:55→21:30)
[2020-05-12] MEDS: VIBRAMYCIN PO SCH ×2 (09:55→21:30)
[2020-05-12] MEDS: ZINC SULFATE PO SCH ×2 (09:56→21:30)
[2020-05-12] MEDS: VITAMIN A PO SCH (09:56)
[2020-05-12] MEDS: LIPITOR TAB 40 MG PO SCH (09:57)
[2020-05-12] MEDS ORDERED: K-DUR TAB 20 MEQ PO PRN (10:47)
[2020-05-12] MEDS ORDERED: POTASSIUM CHL 60 MEQ/NS 0.45% 500 ML IV PRN (10:47)
[2020-05-12] MEDS ORDERED: POTASSIUM CHLORIDE LIQ 20 MEQ UDC PO PRN (10:47)
[2020-05-12] MEDS ORDERED: MICRO K EXTEN CAP 10 MEQ PO PRN (10:47)
[2020-05-12] MEDS ORDERED: KLOR-CON PO PRN (10:47)
[2020-05-12] MEDS ORDERED: POTASSIUM CHL 40 MEQ/NS 0.45% 500 ML IV PRN (10:47)
[2020-05-12] MEDS: LIPITOR TAB 80 MG PO SCH (10:48)
[2020-05-12] MEDS: CATAPRES TAB 0.2 MG PO PRN (19:20)
[2020-05-12] MEDS: COLACE CAP 100 MG PO SCH (21:30)
[2020-05-12] MEDS: MILK OF MAGNESIA PO SCH (22:13)
[2020-05-13] MEDS: DUONEB 0.5 MG/3 MG (3 mL) NEB SCH ×6 (01:00→22:06)
[2020-05-13] MEDS: ASCORBIC ACID INJ MULTI-DOSE VIAL 1,500 MG in NS 100 ML IV 100 ML IV SCH ×4 (03:22→20:45)
[2020-05-13] MEDS: ZOSYN VIAL 4.5 GRAMS 4.5 G in NS 100 ML IV + SPIKE MINIBAG* 100 ML IV SCH ×3 (05:55→20:45)
[2020-05-13 06:18] LABS: BASOPHILS % (AUTO) 0.2 % (0.2-1.0); HEMATOCRIT 34.6 % (36.0-47.0); HEMOGLOBIN 11.8 g/dL (12.0-16.0); LYMPHOCYTES # (AUTO) 0.4 X10^3/uL (1.3-2.9); LYMPHOCYTES % (AUTO) 2.8 % (21.0-51.0); MEAN CORPUSCULAR HEMOGLOBIN 29.9 pg (27.0-34.0); MEAN CORPUSCULAR HGB CONC 34.1 g/dL (33.0-35.0); MEAN CORPUSCULAR VOLUME 87.8 fL (80.0-100.0); MEAN PLATELET VOLUME 8.7 fL (7.4-11.0); MONOCYTES # (AUTO) 0.3 x10^3/uL (0.3-0.8); NEUTROPHILS # (AUTO) 15.3 x10^3/uL (2.2-4.8); PLATELET COUNT 261 X10^3/uL (150.0-450.0); RED BLOOD COUNT 3.94 X10^6/uL (3.5-5.4); WHITE BLOOD COUNT 16.1 X10^3/uL (3.6-10.0)
[2020-05-13 06:24] LABS: ALANINE AMINOTRANSFERASE 25 Units/L (12-78); ALBUMIN 2.2 g/dL (3.4-5.0); ALKALINE PHOSPHATASE 98 Units/L (46-116); ASPARTATE AMINO TRANSFERASE 37 Units/L (15-37); BLOOD UREA NITROGEN 21 mg/dL (7-18); CALCIUM 8.2 mg/dL (8.5-10.1); CARBON DIOXIDE 26.2 mmol/L (21-32); CHLORIDE 108 mmol/L (98-107); COR CA(FOR HYPOALB) 9.6 mg/dL (8.5-10.1); COR NA(FOR HYPERGLY) 144 mmol/L (136-145); CREATININE 0.63 mg/dL (0.55-1.02); SODIUM 143 mmol/L (136-145); TOTAL PROTEIN 5.4 g/dL (6.4-8.2); eGFR NON BLACK RACES > 60 (>60)
[2020-05-13 07:35] LABS: BAND NEUTROPHILS % 1 % (0-10); PLATELET MORPHOLOGY COMMENT NORMAL (NORMAL)
[2020-05-13] MEDS: NS 1000 ML 1,000 ML IV SCH (09:32)
[2020-05-13] MEDS: LIPITOR TAB 80 MG PO SCH (09:33)
[2020-05-13] MEDS: BENICAR TAB 40 MG PO SCH (09:33)
[2020-05-13] MEDS: PEPCID TAB 20 MG PO SCH ×2 (09:34→20:45)
[2020-05-13] MEDS: NORVASC TAB 5 MG PO SCH (09:34)
[2020-05-13] MEDS: THIAMINE HCL INJ IVP SCH ×2 (09:35→20:45)
[2020-05-13] MEDS: VIBRAMYCIN PO SCH ×2 (09:35→20:45)
[2020-05-13] MEDS: VITAMIN A PO SCH (09:35)
[2020-05-13] MEDS: VITAMIN D3 125 mcg (5,000 UNITS) PO SCH (09:36)
[2020-05-13] MEDS: LOVENOX INJ 30 MG SYR SC SCH ×2 (09:36→22:52)
[2020-05-13] MEDS: ZINC SULFATE PO SCH ×2 (09:36→20:45)
[2020-05-13] MEDS: SOLU-Medrol 125 MG VIAL IVP SCH ×2 (09:50→20:45)
[2020-05-13] MEDS: XANAX PO PRN ×2 (09:51→20:45)
[2020-05-13] MEDS: IVERMECTIN PO SCH (15:00)
[2020-05-13] MEDS: COLACE CAP 100 MG PO SCH (20:45)
[2020-05-13] MEDS: MILK OF MAGNESIA PO SCH (22:52)
[2020-05-14] MEDS: DUONEB 0.5 MG/3 MG (3 mL) NEB SCH ×6 (00:52→20:50)
[2020-05-14] MEDS: ASCORBIC ACID INJ MULTI-DOSE VIAL 1,500 MG in NS 100 ML IV 100 ML IV SCH ×4 (03:09→21:38)
[2020-05-14] MEDS: ZOSYN VIAL 4.5 GRAMS 4.5 G in NS 100 ML IV + SPIKE MINIBAG* 100 ML IV SCH ×3 (06:53→23:24)
[2020-05-14] MEDS: BENICAR TAB 40 MG PO SCH (08:39)
[2020-05-14] MEDS: LIPITOR TAB 80 MG PO SCH (08:40)
[2020-05-14] MEDS: PEPCID TAB 20 MG PO SCH ×2 (08:41→21:39)
[2020-05-14] MEDS: NORVASC TAB 5 MG PO SCH (08:41)
[2020-05-14] MEDS: VIBRAMYCIN PO SCH ×2 (08:42→21:40)
[2020-05-14] MEDS: VITAMIN D3 125 mcg (5,000 UNITS) PO SCH (08:42)
[2020-05-14] MEDS: ZINC SULFATE PO SCH ×2 (08:42→21:40)
[2020-05-14] MEDS: THIAMINE HCL INJ IVP SCH ×2 (08:42→21:40)
[2020-05-14] MEDS: SOLU-Medrol 125 MG VIAL IVP SCH ×2 (08:43→21:39)
[2020-05-14] MEDS: VITAMIN A PO SCH (08:43)
[2020-05-14] MEDS: NS 1000 ML 1,000 ML IV SCH (08:47)
[2020-05-14] MEDS: LOVENOX INJ 30 MG SYR SC SCH ×2 (08:47→21:38)
[2020-05-14] MEDS: COLACE CAP 100 MG PO SCH (21:38)
[2020-05-14] MEDS: MILK OF MAGNESIA PO SCH (21:39)
[2020-05-14] MEDS: XANAX PO PRN (21:40)
[2020-05-15] MEDS: DUONEB 0.5 MG/3 MG (3 mL) NEB SCH ×6 (00:09→20:35)
[2020-05-15] MEDS: ASCORBIC ACID INJ MULTI-DOSE VIAL 1,500 MG in NS 100 ML IV 100 ML IV SCH ×4 (02:53→20:54)
[2020-05-15] MEDS: ZOSYN VIAL 4.5 GRAMS 4.5 G in NS 100 ML IV + SPIKE MINIBAG* 100 ML IV SCH ×3 (05:19→23:06)
[2020-05-15 05:46] LABS: BASOPHILS % (AUTO) 0.1 % (0.2-1.0); HEMATOCRIT 34.8 % (36.0-47.0); HEMOGLOBIN 11.4 g/dL (12.0-16.0); LYMPHOCYTES # (AUTO) 0.4 X10^3/uL (1.3-2.9); LYMPHOCYTES % (AUTO) 2.6 % (21.0-51.0); MEAN CORPUSCULAR HEMOGLOBIN 29.1 pg (27.0-34.0); MEAN CORPUSCULAR HGB CONC 32.9 g/dL (33.0-35.0); MEAN CORPUSCULAR VOLUME 88.3 fL (80.0-100.0); MEAN PLATELET VOLUME 9.4 fL (7.4-11.0); MONOCYTES # (AUTO) 0.2 x10^3/uL (0.3-0.8); MONOCYTES % (AUTO) 1.6 % (0.0-13.0); NEUTROPHILS # (AUTO) 13.6 x10^3/uL (2.2-4.8); NEUTROPHILS % (AUTO) 95.7 % (42.0-75.0); PLATELET COUNT 223 X10^3/uL (150.0-450.0); RED BLOOD COUNT 3.93 X10^6/uL (3.5-5.4); RED CELL DISTRIBUTION WIDTH 13.9 % (11.6-16.5); WHITE BLOOD COUNT 14.3 X10^3/uL (3.6-10.0)
[2020-05-15 06:09] LABS: ALANINE AMINOTRANSFERASE 22 Units/L (12-78); ALBUMIN 2.1 g/dL (3.4-5.0); ALKALINE PHOSPHATASE 94 Units/L (46-116); ASPARTATE AMINO TRANSFERASE 32 Units/L (15-37); BLOOD UREA NITROGEN 21 mg/dL (7-18); CALCIUM 8.2 mg/dL (8.5-10.1); CARBON DIOXIDE 28.6 mmol/L (21-32); CHLORIDE 109 mmol/L (98-107); COR CA(FOR HYPOALB) 9.7 mg/dL (8.5-10.1); COR NA(FOR HYPERGLY) 145 mmol/L (136-145); CREATININE 0.59 mg/dL (0.55-1.02); SODIUM 144 mmol/L (136-145); TOTAL PROTEIN 5.4 g/dL (6.4-8.2); eGFR NON BLACK RACES > 60 (>60)
[2020-05-15 06:44] LABS: BAND NEUTROPHILS % 1 % (0-10); PLATELET MORPHOLOGY COMMENT NORMAL (NORMAL)
[2020-05-15] MEDS: SOLU-Medrol 125 MG VIAL IVP SCH ×2 (10:13→20:54)
[2020-05-15] MEDS: NORVASC TAB 5 MG PO SCH (10:13)
[2020-05-15] MEDS: BENICAR TAB 40 MG PO SCH (10:13)
[2020-05-15] MEDS: LOVENOX INJ 30 MG SYR SC SCH ×2 (10:14→20:54)
[2020-05-15] MEDS: VITAMIN D3 125 mcg (5,000 UNITS) PO SCH (10:14)
[2020-05-15] MEDS: VITAMIN A PO SCH (10:15)
[2020-05-15] MEDS: PEPCID TAB 20 MG PO SCH ×2 (10:15→20:54)
[2020-05-15] MEDS: VIBRAMYCIN PO SCH ×2 (10:15→20:55)
[2020-05-15] MEDS: ZINC SULFATE PO SCH ×2 (10:16→20:55)
[2020-05-15] MEDS: LIPITOR TAB 80 MG PO SCH (10:16)
[2020-05-15] MEDS: NS 1000 ML 1,000 ML IV SCH (10:21)
[2020-05-15] MEDS: THIAMINE HCL INJ IVP SCH ×2 (11:25→20:55)
[2020-05-15] MEDS: IVERMECTIN PO SCH (15:41)
[2020-05-15] MEDS: MILK OF MAGNESIA PO SCH (20:54)
[2020-05-15] MEDS: COLACE CAP 100 MG PO SCH (20:54)
[2020-05-15] MEDS: XANAX PO PRN (20:55)
[2020-05-16] MEDS: DUONEB 0.5 MG/3 MG (3 mL) NEB SCH ×6 (03:28→20:32)
[2020-05-16] MEDS: ASCORBIC ACID INJ MULTI-DOSE VIAL 1,500 MG in NS 100 ML IV 100 ML IV SCH ×4 (03:37→21:44)
[2020-05-16 05:53] LABS: BASOPHILS % (AUTO) 0.2 % (0.2-1.0); HEMATOCRIT 35.1 % (36.0-47.0); HEMOGLOBIN 11.7 g/dL (12.0-16.0); LYMPHOCYTES # (AUTO) 0.4 X10^3/uL (1.3-2.9); LYMPHOCYTES % (AUTO) 3.3 % (21.0-51.0); MEAN CORPUSCULAR HEMOGLOBIN 29.3 pg (27.0-34.0); MEAN CORPUSCULAR HGB CONC 33.2 g/dL (33.0-35.0); MEAN CORPUSCULAR VOLUME 88.2 fL (80.0-100.0); MEAN PLATELET VOLUME 10.1 fL (7.4-11.0); MONOCYTES # (AUTO) 0.3 x10^3/uL (0.3-0.8); MONOCYTES % (AUTO) 2.2 % (0.0-13.0); NEUTROPHILS # (AUTO) 11.8 x10^3/uL (2.2-4.8); NEUTROPHILS % (AUTO) 94.3 % (42.0-75.0); PLATELET COUNT 221 X10^3/uL (150.0-450.0); RED BLOOD COUNT 3.98 X10^6/uL (3.5-5.4); RED CELL DISTRIBUTION WIDTH 14.1 % (11.6-16.5); WHITE BLOOD COUNT 12.5 X10^3/uL (3.6-10.0)
[2020-05-16 05:58] LABS: ALANINE AMINOTRANSFERASE 24 Units/L (12-78); ALBUMIN 2.1 g/dL (3.4-5.0); ALKALINE PHOSPHATASE 97 Units/L (46-116); ASPARTATE AMINO TRANSFERASE 29 Units/L (15-37); BLOOD UREA NITROGEN 21 mg/dL (7-18); CALCIUM 8.6 mg/dL (8.5-10.1); CARBON DIOXIDE 28.1 mmol/L (21-32); CHLORIDE 109 mmol/L (98-107); COR CA(FOR HYPOALB) 10.1 mg/dL (8.5-10.1); COR NA(FOR HYPERGLY) 148 mmol/L (136-145); CREATININE 0.69 mg/dL (0.55-1.02); SODIUM 147 mmol/L (136-145); TOTAL PROTEIN 5.6 g/dL (6.4-8.2); eGFR NON BLACK RACES > 60 (>60)
[2020-05-16] MEDS: ZOSYN VIAL 4.5 GRAMS 4.5 G in NS 100 ML IV + SPIKE MINIBAG* 100 ML IV SCH ×3 (06:15→21:48)
[2020-05-16 06:23] LABS: PLATELET MORPHOLOGY COMMENT NORMAL (NORMAL)
[2020-05-16] MEDS: THIAMINE HCL INJ IVP SCH ×2 (10:00→21:46)
[2020-05-16] MEDS: VITAMIN A PO SCH (10:00)
[2020-05-16] MEDS: VITAMIN D3 125 mcg (5,000 UNITS) PO SCH (10:00)
[2020-05-16] MEDS: NORVASC TAB 5 MG PO SCH (10:00)
[2020-05-16] MEDS: BENICAR TAB 40 MG PO SCH (10:00)
[2020-05-16] MEDS: LIPITOR TAB 80 MG PO SCH (10:00)
[2020-05-16] MEDS: ZINC SULFATE PO SCH ×2 (10:00→21:47)
[2020-05-16] MEDS: SOLU-Medrol 125 MG VIAL IVP SCH ×2 (10:00→21:46)
[2020-05-16] MEDS: PEPCID TAB 20 MG PO SCH ×2 (10:00→21:45)
[2020-05-16] MEDS: VIBRAMYCIN PO SCH ×2 (11:23→21:46)
[2020-05-16] MEDS: XANAX PO PRN ×2 (11:50→21:48)
[2020-05-16] MEDS: LOVENOX INJ 30 MG SYR SC SCH ×2 (11:50→21:45)
[2020-05-16] MEDS ORDERED: NS 100 ML IV + SPIKE MINIBAG* 100 ML IV ONE (17:34)
[2020-05-16] MEDS: COLACE CAP 100 MG PO SCH (21:44)
[2020-05-16] MEDS: MILK OF MAGNESIA PO SCH (21:45)
[2020-05-17] MEDS: DUONEB 0.5 MG/3 MG (3 mL) NEB SCH ×6 (01:03→21:06)
[2020-05-17] MEDS: ASCORBIC ACID INJ MULTI-DOSE VIAL 1,500 MG in NS 100 ML IV 100 ML IV SCH ×4 (02:23→20:57)
--- NOTE | 2020-05-17 05:33 | RAD ---
PROCEDURE: Chest X-ray 1 View .HISTORY: COVID+ .TECHNIQUE: AP view .COMPARISON: 05/12/2020.TECHNICAL QUALITY: Satisfactory .FINDINGS:Unchanged cardiomediastinal silhouette.Increase consolidation both lung bases and midlung hunt compared to previous study consistent with increasing pneumonia. No pleural fluid or pneumothorax.IMPRESSION:Increasing pneumonia bilaterally.Electronically signed by: Panchito Marie (May 17, 2020 05:31:58)
[2020-05-17] MEDS: ZOSYN VIAL 4.5 GRAMS 4.5 G in NS 100 ML IV + SPIKE MINIBAG* 100 ML IV SCH (06:01)
[2020-05-17 06:10] LABS: BASOPHILS % (AUTO) 0.1 % (0.2-1.0); HEMATOCRIT 34.3 % (36.0-47.0); HEMOGLOBIN 11.7 g/dL (12.0-16.0); LYMPHOCYTES # (AUTO) 0.4 X10^3/uL (1.3-2.9); LYMPHOCYTES % (AUTO) 3.8 % (21.0-51.0); MEAN CORPUSCULAR HEMOGLOBIN 30.3 pg (27.0-34.0); MEAN CORPUSCULAR HGB CONC 34.2 g/dL (33.0-35.0); MEAN CORPUSCULAR VOLUME 88.6 fL (80.0-100.0); MEAN PLATELET VOLUME 9.4 fL (7.4-11.0); MONOCYTES # (AUTO) 0.2 x10^3/uL (0.3-0.8); MONOCYTES % (AUTO) 2.1 % (0.0-13.0); PLATELET COUNT 218 X10^3/uL (150.0-450.0); RED BLOOD COUNT 3.87 X10^6/uL (3.5-5.4); RED CELL DISTRIBUTION WIDTH 14.2 % (11.6-16.5); WHITE BLOOD COUNT 9.6 X10^3/uL (3.6-10.0)
[2020-05-17 06:23] LABS: ALANINE AMINOTRANSFERASE 28 Units/L (12-78); ALBUMIN 2.3 g/dL (3.4-5.0); ALKALINE PHOSPHATASE 91 Units/L (46-116); ASPARTATE AMINO TRANSFERASE 29 Units/L (15-37); BLOOD UREA NITROGEN 22 mg/dL (7-18); CALCIUM 8.6 mg/dL (8.5-10.1); CARBON DIOXIDE 31.5 mmol/L (21-32); CHLORIDE 108 mmol/L (98-107); COR NA(FOR HYPERGLY) 147 mmol/L (136-145); CREATININE 0.69 mg/dL (0.55-1.02); SODIUM 146 mmol/L (136-145); eGFR NON BLACK RACES > 60 (>60)
[2020-05-17 06:54] LABS: PLATELET MORPHOLOGY COMMENT NORMAL (NORMAL)
[2020-05-17] MEDS: BENICAR TAB 40 MG PO SCH (08:53)
[2020-05-17] MEDS: LIPITOR TAB 80 MG PO SCH (08:54)
[2020-05-17] MEDS: LOVENOX INJ 30 MG SYR SC SCH ×2 (08:54→20:57)
[2020-05-17] MEDS: THIAMINE HCL INJ IVP SCH ×2 (08:55→20:58)
[2020-05-17] MEDS: SOLU-Medrol 125 MG VIAL IVP SCH ×2 (08:55→20:58)
[2020-05-17] MEDS: NORVASC TAB 5 MG PO SCH (08:55)
[2020-05-17] MEDS: PEPCID TAB 20 MG PO SCH ×2 (08:55→20:58)
[2020-05-17] MEDS: ZINC SULFATE PO SCH ×2 (08:56→20:58)
[2020-05-17] MEDS: VITAMIN D3 125 mcg (5,000 UNITS) PO SCH (08:56)
[2020-05-17] MEDS: VIBRAMYCIN PO SCH ×2 (08:56→20:58)
[2020-05-17] MEDS: VITAMIN A PO SCH (08:56)
[2020-05-17] MEDS: IVERMECTIN PO SCH (14:18)
[2020-05-17] MEDS: MILK OF MAGNESIA PO SCH (20:57)
[2020-05-17] MEDS: COLACE CAP 100 MG PO SCH (20:57)
[2020-05-17] MEDS: XANAX PO PRN (20:58)
[2020-05-18] MEDS: DUONEB 0.5 MG/3 MG (3 mL) NEB SCH ×6 (01:00→20:30)
[2020-05-18] MEDS: ASCORBIC ACID INJ MULTI-DOSE VIAL 1,500 MG in NS 100 ML IV 100 ML IV SCH ×4 (02:01→20:47)
[2020-05-18 06:25] LABS: BASOPHILS % (AUTO) 0.3 % (0.2-1.0); EOSINOPHILS % (AUTO) 0.1 % (0.9-2.9); HEMATOCRIT 32.9 % (36.0-47.0); HEMOGLOBIN 11.2 g/dL (12.0-16.0); LYMPHOCYTES # (AUTO) 0.4 X10^3/uL (1.3-2.9); MEAN CORPUSCULAR VOLUME 88.2 fL (80.0-100.0); MEAN PLATELET VOLUME 10.6 fL (7.4-11.0); MONOCYTES # (AUTO) 0.2 x10^3/uL (0.3-0.8); MONOCYTES % (AUTO) 1.7 % (0.0-13.0); NEUTROPHILS # (AUTO) 11.3 x10^3/uL (2.2-4.8); NEUTROPHILS % (AUTO) 94.9 % (42.0-75.0); PLATELET COUNT 213 X10^3/uL (150.0-450.0); RED BLOOD COUNT 3.74 X10^6/uL (3.5-5.4); RED CELL DISTRIBUTION WIDTH 14.3 % (11.6-16.5); WHITE BLOOD COUNT 11.9 X10^3/uL (3.6-10.0)
[2020-05-18 07:04] LABS: ALANINE AMINOTRANSFERASE 25 Units/L (12-78); ALBUMIN 2.2 g/dL (3.4-5.0); ALKALINE PHOSPHATASE 82 Units/L (46-116); ASPARTATE AMINO TRANSFERASE 32 Units/L (15-37); BLOOD UREA NITROGEN 23 mg/dL (7-18); CALCIUM 8.7 mg/dL (8.5-10.1); CARBON DIOXIDE 28.9 mmol/L (21-32); CHLORIDE 110 mmol/L (98-107); COR CA(FOR HYPOALB) 10.1 mg/dL (8.5-10.1); COR NA(FOR HYPERGLY) 147 mmol/L (136-145); SODIUM 146 mmol/L (136-145); TOTAL PROTEIN 5.7 g/dL (6.4-8.2); eGFR NON BLACK RACES > 60 (>60)
[2020-05-18 07:31] LABS: BAND NEUTROPHILS % 2 % (0-10); PLATELET MORPHOLOGY COMMENT NORMAL (NORMAL)
[2020-05-18] MEDS: LOVENOX INJ 30 MG SYR SC SCH ×2 (08:46→20:47)
[2020-05-18] MEDS: BENICAR TAB 40 MG PO SCH (08:46)
[2020-05-18] MEDS: LIPITOR TAB 80 MG PO SCH (08:46)
[2020-05-18] MEDS: NORVASC TAB 5 MG PO SCH (08:47)
[2020-05-18] MEDS: THIAMINE HCL INJ IVP SCH ×2 (08:48→20:48)
[2020-05-18] MEDS: SOLU-Medrol 125 MG VIAL IVP SCH ×2 (08:48→20:48)
[2020-05-18] MEDS: PEPCID TAB 20 MG PO SCH ×2 (08:48→20:48)
[2020-05-18] MEDS: VITAMIN A PO SCH (08:49)
[2020-05-18] MEDS: VITAMIN D3 125 mcg (5,000 UNITS) PO SCH (08:49)
[2020-05-18] MEDS: ZINC SULFATE PO SCH ×2 (08:49→20:49)
[2020-05-18] MEDS: VIBRAMYCIN PO SCH ×2 (08:49→20:48)
[2020-05-18] MEDS: NS 1000 ML 1,000 ML IV SCH (19:05)
[2020-05-18] MEDS: COLACE CAP 100 MG PO SCH (20:47)
[2020-05-18] MEDS: MILK OF MAGNESIA PO SCH (20:48)
[2020-05-18] MEDS: XANAX PO PRN (20:49)
[2020-05-19] MEDS: DUONEB 0.5 MG/3 MG (3 mL) NEB SCH ×5 (01:45→20:20)
[2020-05-19] MEDS: ASCORBIC ACID INJ MULTI-DOSE VIAL 1,500 MG in NS 100 ML IV 100 ML IV SCH ×3 (03:19→14:55)
[2020-05-19] MEDS: NS 1000 ML 1,000 ML IV SCH ×2 (07:18→10:56)
[2020-05-19] MEDS: VITAMIN D3 125 mcg (5,000 UNITS) PO SCH (09:15)
[2020-05-19] MEDS: LIPITOR TAB 80 MG PO SCH (09:15)
[2020-05-19] MEDS: BENICAR TAB 40 MG PO SCH (09:15)
[2020-05-19] MEDS: THIAMINE HCL INJ IVP SCH (09:15)
[2020-05-19] MEDS: DECADRON INJ IVP SCH (09:15)
[2020-05-19] MEDS: ZINC SULFATE PO SCH (09:15)
[2020-05-19] MEDS: VIBRAMYCIN PO SCH (09:15)
[2020-05-19] MEDS: PEPCID TAB 20 MG PO SCH (09:15)
[2020-05-19] MEDS: VITAMIN A PO SCH (09:15)
[2020-05-19] MEDS: NORVASC TAB 5 MG PO SCH (09:15)
[2020-05-19] MEDS: LOVENOX INJ 30 MG SYR SC SCH (10:57)
[2020-05-19] MEDS: XANAX PO PRN (13:17)
[2020-05-19] MEDS: IVERMECTIN PO SCH (13:58)
[2020-05-19] MEDS ORDERED: ATIVAN INJ 2 MG VIAL IVP SCH (21:06)
[2020-05-19] MEDS ORDERED: ATIVAN INJ 2 MG VIAL ONE (21:08)
[2020-05-19 21:42] LABS: ABG BASE EXCESS 9.1 mmol/L (-2.0-2.0)
[2020-05-19 21:44] LABS: ABG HCO3 33.5 mmol/L (22-26)
[2020-05-19 21:45] LABS: ABG ALLEN TEST POS
[2020-05-19] MEDS ORDERED: DIPRIVAN PREMIX 1 GRAM IV 1,000 MG/100 ML VIAL ONE (22:13)
[2020-05-19] MEDS ORDERED: DIPRIVAN VIAL 40 ML ONE (22:13)
[2020-05-19] MEDS ORDERED: QUELICIN (OR ANECTINE) ONE (22:18)
[2020-05-19] MEDS ORDERED: DIPRIVAN PREMIX 500 MG IV 500 MG/50 ML VIAL IV ONE (22:40)
[2020-05-19] MEDS: NORCURON INJ 10 MG VIAL 50 MG in NS 50 ML IV 50 ML IV PRN (22:40)
--- NOTE | 2020-05-19 23:05 | RAD ---
PROCEDURE: Chest X-ray 1 View .HISTORY: Intubation.TECHNIQUE: AP portable view done at 10:51 p.m..COMPARISON: 05/17/2020.TECHNICAL QUALITY: Satisfactory .FINDINGS:Endotracheal tube tip 4 cm above the sarah.Normal appearing cardio mediastinal silhouette.Normal central vascularity.Patchy consolidation lung bases with no pleural fluid or pneumothorax that is unchanged to mildly improved compared to previous study.IMPRESSION:1. Good endotracheal tube placement.2. Unchanged to mildly improved pneumonia.Electronically signed by: Panchito Marie (May 19, 2020 23:02:57)
[2020-05-20] MEDS: ASCORBIC ACID INJ MULTI-DOSE VIAL 1,500 MG in NS 100 ML IV 100 ML IV SCH ×5 (00:14→21:00)
[2020-05-20] MEDS: COLACE CAP 100 MG PO SCH (00:15)
[2020-05-20] MEDS: LOVENOX INJ 30 MG SYR SC SCH ×2 (01:45→08:32)
[2020-05-20] MEDS: THIAMINE HCL INJ IVP SCH ×3 (01:46→21:00)
[2020-05-20] MEDS: MILK OF MAGNESIA PO SCH (01:46)
[2020-05-20] MEDS: PEPCID TAB 20 MG PO SCH ×2 (01:46→08:33)
[2020-05-20] MEDS: ZINC SULFATE PO SCH ×2 (01:47→08:34)
[2020-05-20] MEDS: VIBRAMYCIN PO SCH ×2 (01:47→08:33)
[2020-05-20] MEDS ORDERED: NORCURON INJ 10 MG VIAL ONE ×2 (04:25→16:57)
[2020-05-20] MEDS: NORCURON INJ 10 MG VIAL 50 MG in NS 50 ML IV 50 ML IV PRN ×5 (05:15→21:22)
[2020-05-20] MEDS: DIPRIVAN PREMIX 1 GRAM IV 1,000 MG/100 ML VIAL IV PRN ×8 (05:20→23:39)
[2020-05-20 05:41] LABS: ABG BASE EXCESS 6.2 mmol/L (-2.0-2.0)
[2020-05-20 05:43] LABS: ABG HCO3 35.1 mmol/L (22-26)
[2020-05-20 05:44] LABS: ABG ALLEN TEST POS
[2020-05-20] MEDS: DUONEB 0.5 MG/3 MG (3 mL) NEB SCH ×6 (06:00→20:52)
[2020-05-20 06:05] LABS: BILIRUBIN,URINE NEGATIVE (NEGATIVE); BLOOD/HEMOGLOBIN,URINE 1+ (NEGATIVE); GLUCOSE, URINE NEGATIVE (NEGATIVE); KETONES,URINE NEGATIVE (NEGATIVE); LEUKOCYTE ESTERASE ,URINE NEGATIVE (NEGATIVE); NITRITES,URINE NEGATIVE (NEGATIVE); PH,URINE 6.5 (5.0 - 8.0); PROTEIN,URINE 2+ (NEGATIVE); UROBILINOGEN,URINE 1+ (NORMAL)
[2020-05-20 06:12] LABS: APPEARANCE,URINE CLEAR (CLEAR); COLOR,URINE YELLOW (YELLOW)
[2020-05-20 06:13] LABS: BACTERIA,URINE TRACE /HPF (NEGATIVE); CALCIUM OXALATE CRYSTALS,UR FEW /HPF (NEGATIVE); RBC,URINE 0-2 /HPF (0-3); SQUAMOUS EPITHELIAL CELL,UR NEGATIVE /HPF (NEGATIVE)
[2020-05-20 06:45] LABS: BASOPHILS % (AUTO) 0 % (0.2-1.0); EOSINOPHILS # (AUTO) 0.2 x10^3/uL (0.0-0.2); EOSINOPHILS % (AUTO) 0.5 % (0.9-2.9); HEMATOCRIT 38.9 % (36.0-47.0); HEMOGLOBIN 12.9 g/dL (12.0-16.0); LYMPHOCYTES # (AUTO) 0.8 X10^3/uL (1.3-2.9); LYMPHOCYTES % (AUTO) 2.8 % (21.0-51.0); MEAN CORPUSCULAR HEMOGLOBIN 29.5 pg (27.0-34.0); MEAN CORPUSCULAR HGB CONC 33.3 g/dL (33.0-35.0); MEAN CORPUSCULAR VOLUME 88.6 fL (80.0-100.0); MEAN PLATELET VOLUME 8.6 fL (7.4-11.0); MONOCYTES # (AUTO) 0.5 x10^3/uL (0.3-0.8); MONOCYTES % (AUTO) 1.7 % (0.0-13.0); NEUTROPHILS # (AUTO) 27.2 x10^3/uL (2.2-4.8); PLATELET COUNT 287 X10^3/uL (150.0-450.0); RED BLOOD COUNT 4.39 X10^6/uL (3.5-5.4); RED CELL DISTRIBUTION WIDTH 14.7 % (11.6-16.5); WHITE BLOOD COUNT 28.7 X10^3/uL (3.6-10.0)
[2020-05-20 07:03] LABS: ALANINE AMINOTRANSFERASE 25 Units/L (12-78); ALBUMIN 2.3 g/dL (3.4-5.0); ALKALINE PHOSPHATASE 100 Units/L (46-116); ASPARTATE AMINO TRANSFERASE 41 Units/L (15-37); BLOOD UREA NITROGEN 15 mg/dL (7-18); CALCIUM 8.4 mg/dL (8.5-10.1); CARBON DIOXIDE 29.7 mmol/L (21-32); CHLORIDE 110 mmol/L (98-107); COR CA(FOR HYPOALB) 9.8 mg/dL (8.5-10.1); COR NA(FOR HYPERGLY) 149 mmol/L (136-145); CREATININE 0.54 mg/dL (0.55-1.02); SODIUM 149 mmol/L (136-145); TOTAL PROTEIN 5.9 g/dL (6.4-8.2); eGFR NON BLACK RACES > 60 (>60)
[2020-05-20 07:53] LABS: BAND NEUTROPHILS % 1 % (0-10); PLATELET MORPHOLOGY COMMENT NORMAL (NORMAL)
[2020-05-20] MEDS ORDERED: K-RIDER 10 MEQ/NS 100 ML 10 MEQ/100 ML BAG IV PRN (07:59)
[2020-05-20] MEDS ORDERED: POTASSIUM CHL 60 MEQ/NS 0.45% 500 ML IV PRN (07:59)
[2020-05-20] MEDS ORDERED: POTASSIUM CHLORIDE LIQ 20 MEQ UDC PO PRN (07:59)
[2020-05-20] MEDS ORDERED: POTASSIUM CHL 40 MEQ/NS 0.45% 500 ML IV PRN (07:59)
[2020-05-20] MEDS ORDERED: MICRO K EXTEN CAP 10 MEQ PO PRN (07:59)
[2020-05-20] MEDS ORDERED: KLOR-CON PO PRN (07:59)
[2020-05-20] MEDS ORDERED: K-DUR TAB 20 MEQ PO PRN (07:59)
[2020-05-20] MEDS ORDERED: ATIVAN INJ 2 MG VIAL IVP PRN (08:31)
[2020-05-20] MEDS: LIPITOR TAB 80 MG PO SCH (08:32)
[2020-05-20] MEDS: DECADRON INJ IVP SCH (08:32)
[2020-05-20] MEDS: BENICAR TAB 40 MG PO SCH (08:32)
[2020-05-20] MEDS: VITAMIN A PO SCH (08:33)
[2020-05-20] MEDS: NORVASC TAB 5 MG PO SCH (08:33)
[2020-05-20] MEDS: NS 1000 ML 1,000 ML IV SCH (08:33)
[2020-05-20] MEDS: VITAMIN D3 125 mcg (5,000 UNITS) PO SCH (08:34)
--- NOTE | 2020-05-20 09:38 | RAD ---
HISTORYCENTRAL LINE PLACEMENTSTUDYCHEST, 1 VIEWCOMPARISONChest film May 19, 2020.FINDINGSThe trachea is midline. An endotracheal tube is also in place in good position located at T3. The cardiac silhouette is unremarkable. A new right internal jugular line is been placed tip is in good position in the superior vena cava without pneumothorax. The bibasilar interstitial infiltrates are unchanged from prior day's film. The bony thorax is unremarkable.IMPRESSIONNo change in the bibasilar interstitial infiltrates. ET tube is in good position. Right internal jugular line is been placed with tip in good position in the superior vena cava without pneumothorax.Electronically signed by: DAKOTA DAVIDSON (May 20, 2020 09:36:45)
--- NOTE | 2020-05-20 09:44 | DR.UPDATE ---
H&P Update History and Physical Update: History and Physical reviewed and patient examined. Changes noted: NO Yes with the following:will place central line H&P Reviewed: Yes Patient was examined?: Yes Procedures (ALL) - Central Line Placement PCM.CLCO: written consent Time out performed: Yes Patient placed pm monitor/pulse ox: Yes prep: mask, gown, gloves, other Centrial line prep: chlorhexidine scrub, sterile drapes applied Ultrasound used for placement: Yes (right ij id'd via u/s, cannulation visualized) Central line lumen ininserted: triple Post procedure: sutured in place, good blood return, all ports aspirated, flushed,capped, sterile dressing applied Post procedure xray: tip oc catheter in good position (tip in svc per cxr), no pneumothorax seen Patient tolerated procedure: Yes Complications: none
[2020-05-20] MEDS ORDERED: LOVENOX INJ 30 MG SYR SC SCH (10:00)
[2020-05-20] MEDS ORDERED: CATAPRES-TTS-2 TD SCH (10:00)
[2020-05-20] MEDS: MAGNESIUM SULFATE 1 GRAM/100 mL PREMIX 1 GM/100 ML BAG IV PRN ×4 (16:00→17:59)
[2020-05-20] MEDS: PEPCID 20 MG IV PREMIX* 20 MG/50 ML BAG IV SCH (21:00)
[2020-05-20] MEDS: VIBRAMYCIN 100 MG in D5W 250 ML IV 250 ML IV SCH (21:00)
[2020-05-20] MEDS: LOVENOX INJ 40 MG SYR SC SCH (21:00)
--- NOTE | 2020-05-20 21:35 | RAD ---
KUBHistory: OG TUBE PLACEMENTComparison: NoneFindings/Impression: Tip of the OG tube is well positioned, terminating over the gastric antrum with side port distal to the GE junction. Imaged bowel gas pattern is nonobstructive.Electronically signed by: PARAMJIT BELTRAN (May 20, 2020 21:33:47)
[2020-05-21] MEDS: DUONEB 0.5 MG/3 MG (3 mL) NEB SCH ×6 (01:00→21:10)
[2020-05-21] MEDS: DIPRIVAN PREMIX 1 GRAM IV 1,000 MG/100 ML VIAL IV PRN ×3 (03:15→19:44)
[2020-05-21] MEDS: ASCORBIC ACID INJ MULTI-DOSE VIAL 1,500 MG in NS 100 ML IV 100 ML IV SCH ×4 (03:17→20:45)
[2020-05-21] MEDS ORDERED: NORCURON INJ 10 MG VIAL ONE (04:18)
[2020-05-21] MEDS: NORCURON INJ 10 MG VIAL 50 MG in NS 50 ML IV 50 ML IV PRN ×2 (04:26→14:45)
[2020-05-21 04:54] LABS: ABG BASE EXCESS 9.6 mmol/L (-2.0-2.0)
[2020-05-21 04:55] LABS: ABG ALLEN TEST POS; ABG HCO3 39.5 mmol/L (22-26)
[2020-05-21 05:35] LABS: BASOPHILS % (AUTO) 0.2 % (0.2-1.0); HEMATOCRIT 36.2 % (36.0-47.0); HEMOGLOBIN 11.7 g/dL (12.0-16.0); LYMPHOCYTES # (AUTO) 0.5 X10^3/uL (1.3-2.9); MEAN CORPUSCULAR HEMOGLOBIN 29.2 pg (27.0-34.0); MEAN CORPUSCULAR HGB CONC 32.3 g/dL (33.0-35.0); MEAN CORPUSCULAR VOLUME 90.4 fL (80.0-100.0); MONOCYTES # (AUTO) 0.6 x10^3/uL (0.3-0.8); MONOCYTES % (AUTO) 3.2 % (0.0-13.0); NEUTROPHILS # (AUTO) 17.1 x10^3/uL (2.2-4.8); NEUTROPHILS % (AUTO) 93.6 % (42.0-75.0); PLATELET COUNT 274 X10^3/uL (150.0-450.0); RED BLOOD COUNT 4.01 X10^6/uL (3.5-5.4); RED CELL DISTRIBUTION WIDTH 15.1 % (11.6-16.5)
[2020-05-21 05:36] LABS: ALANINE AMINOTRANSFERASE 20 Units/L (12-78); ALKALINE PHOSPHATASE 85 Units/L (46-116); ASPARTATE AMINO TRANSFERASE 30 Units/L (15-37); BLOOD UREA NITROGEN 9 mg/dL (7-18); CALCIUM 8.9 mg/dL (8.5-10.1); CARBON DIOXIDE 32.6 mmol/L (21-32); CHLORIDE 108 mmol/L (98-107); COR CA(FOR HYPOALB) 10.5 mg/dL (8.5-10.1); COR NA(FOR HYPERGLY) 149 mmol/L (136-145); CREATININE 0.53 mg/dL (0.55-1.02); MAGNESIUM 2.6 mg/dL (1.7-2.9); SODIUM 148 mmol/L (136-145); TOTAL PROTEIN 5.9 g/dL (6.4-8.2); eGFR NON BLACK RACES > 60 (>60)
--- NOTE | 2020-05-21 05:55 | RAD ---
HISTORYVENTILATOR DEPENDENCE, COVID+STUDYCHEST, 1 [id number]/14/2021FINDINGSInterval placement of a enteric tube, terminating beyond the inferior margin of the study. ETT and right IJ CVC unchanged. Bilateral pulmonary opacities/infiltrates similar to prior exam. Osseous structures are stable.IMPRESSIONInterval placement of a enteric tube. Exam is otherwise unchanged.Electronically signed by: Sanam Cruz (May 21, 2020 05:54:31)
[2020-05-21 06:17] LABS: WHITE BLOOD COUNT 18.3 X10^3/uL (3.6-10.0)
[2020-05-21 06:18] LABS: BAND NEUTROPHILS % 2 % (0-10); PLATELET MORPHOLOGY COMMENT NORMAL (NORMAL)
[2020-05-21] MEDS: THIAMINE HCL INJ IVP SCH ×2 (08:51→20:45)
[2020-05-21] MEDS: LOVENOX INJ 40 MG SYR SC SCH ×2 (08:53→20:45)
[2020-05-21] MEDS: DECADRON INJ IVP SCH (08:54)
[2020-05-21] MEDS: PEPCID 20 MG IV PREMIX* 20 MG/50 ML BAG IV SCH ×2 (09:00→21:20)
[2020-05-21] MEDS: VIBRAMYCIN 100 MG in D5W 250 ML IV 250 ML IV SCH ×2 (09:47→21:40)
[2020-05-21] MEDS ORDERED: NS 500 ML IV 500 ML IV ONE (11:00)
--- NOTE | 2020-05-21 14:15 | DR.UPDATE ---
H&P Update History and Physical Update: History and Physical reviewed and patient examined. Changes noted: NO Yes with the following: will place arterial line for sampling/monitoring H&P Reviewed: Yes Patient was examined?: Yes Procedures (ALL) - Arterial Line Consent obtained: verbal consent Time out performed: Yes Size(gauge): 20 Technique used: guided wire technique Post-procedure: dry sterile dressing placed Patient tolerated procedure: Yes Site: Left, radial
[2020-05-21] MEDS: APRESOLINE INJ 20 MG VIAL IVP PRN (15:36)
[2020-05-21] MEDS: LOPRESSOR INJ 5 MG AMP IVP PRN ×2 (15:55→22:57)
[2020-05-21] MEDS ORDERED: OFIRMEV IV 1000 MG VIAL 1,000 MG/100 ML VIAL IV PRN (16:23)
[2020-05-21 23:28] LABS: ABG BASE EXCESS 10.4 mmol/L (-2.0-2.0)
[2020-05-21 23:32] LABS: ABG HCO3 38.2 mmol/L (22-26)
[2020-05-22] MEDS: NORCURON INJ 10 MG VIAL 50 MG in NS 50 ML IV 50 ML IV PRN ×3 (00:22→21:30)
[2020-05-22] MEDS: BENICAR TAB 40 MG PO SCH ×2 (00:40→08:12)
[2020-05-22] MEDS: NORVASC TAB 5 MG PO SCH ×2 (00:40→08:12)
[2020-05-22] MEDS: DUONEB 0.5 MG/3 MG (3 mL) NEB SCH ×6 (00:53→21:03)
[2020-05-22] MEDS: ASCORBIC ACID INJ MULTI-DOSE VIAL 1,500 MG in NS 100 ML IV 100 ML IV SCH ×4 (02:46→22:18)
[2020-05-22 04:58] LABS: ABG BASE EXCESS 14.2 mmol/L (-2.0-2.0)
[2020-05-22 04:59] LABS: ABG HCO3 42.8 mmol/L (22-26)
[2020-05-22] MEDS: DIPRIVAN PREMIX 1 GRAM IV 1,000 MG/100 ML VIAL IV PRN ×3 (04:59→21:30)
--- NOTE | 2020-05-22 06:15 | RAD ---
HISTORYcovidSTUDYPortable AP [id number]/15/2020FINDINGSThere is no change in appearance of heart, lungs or mediastinum. Diffuse bibasal airspace disease again noted. Stable position of support lines. The upper lungs remain relatively clear. No extrapulmonary air collection is demonstrated.IMPRESSIONNo change identified in extent or distribution of bilateral pneumonia.Electronically signed by: ADDIE AMEZQUITA (May 22, 2020 06:14:13)
[2020-05-22 06:40] LABS: BASOPHILS # (AUTO) 0.1 X10^3/uL (0.0-0.1); BASOPHILS % (AUTO) 0.6 % (0.2-1.0); HEMATOCRIT 34.5 % (36.0-47.0); HEMOGLOBIN 11.4 g/dL (12.0-16.0); LYMPHOCYTES # (AUTO) 0.8 X10^3/uL (1.3-2.9); LYMPHOCYTES % (AUTO) 4.9 % (21.0-51.0); MEAN CORPUSCULAR HEMOGLOBIN 29.8 pg (27.0-34.0); MEAN CORPUSCULAR HGB CONC 33.2 g/dL (33.0-35.0); MEAN CORPUSCULAR VOLUME 89.6 fL (80.0-100.0); MEAN PLATELET VOLUME 9.1 fL (7.4-11.0); MONOCYTES # (AUTO) 0.7 x10^3/uL (0.3-0.8); MONOCYTES % (AUTO) 4.3 % (0.0-13.0); NEUTROPHILS # (AUTO) 13.9 x10^3/uL (2.2-4.8); NEUTROPHILS % (AUTO) 90.2 % (42.0-75.0); PLATELET COUNT 241 X10^3/uL (150.0-450.0); RED BLOOD COUNT 3.85 X10^6/uL (3.5-5.4); RED CELL DISTRIBUTION WIDTH 14.8 % (11.6-16.5); WHITE BLOOD COUNT 15.4 X10^3/uL (3.6-10.0)
[2020-05-22 06:50] LABS: ALANINE AMINOTRANSFERASE 17 Units/L (12-78); ALBUMIN 2.1 g/dL (3.4-5.0); ALKALINE PHOSPHATASE 74 Units/L (46-116); ASPARTATE AMINO TRANSFERASE 31 Units/L (15-37); BLOOD UREA NITROGEN 13 mg/dL (7-18); CARBON DIOXIDE 37.8 mmol/L (21-32); CHLORIDE 107 mmol/L (98-107); COR CA(FOR HYPOALB) 10.5 mg/dL (8.5-10.1); COR NA(FOR HYPERGLY) 149 mmol/L (136-145); CREATININE 0.42 mg/dL (0.55-1.02); SODIUM 149 mmol/L (136-145); TOTAL PROTEIN 6.2 g/dL (6.4-8.2); eGFR NON BLACK RACES > 60 (>60)
[2020-05-22 07:33] LABS: BAND NEUTROPHILS % 2 % (0-10); PLATELET MORPHOLOGY COMMENT NORMAL (NORMAL)
[2020-05-22] MEDS: LOVENOX INJ 40 MG SYR SC SCH ×2 (08:12→21:30)
[2020-05-22] MEDS: VIBRAMYCIN 100 MG in D5W 250 ML IV 250 ML IV SCH ×2 (09:20→22:45)
[2020-05-22] MEDS: THIAMINE HCL INJ IVP SCH ×2 (10:00→21:41)
[2020-05-22] MEDS: PEPCID 20 MG IV PREMIX* 20 MG/50 ML BAG IV SCH ×2 (10:00→21:30)
[2020-05-22] MEDS: DECADRON INJ IVP SCH (10:00)
[2020-05-22] MEDS: LR 1000 ML IV 1,000 ML IV SCH (11:30)
[2020-05-22] MEDS: LOPRESSOR INJ 5 MG AMP IVP PRN (14:23)
[2020-05-22] MEDS: APRESOLINE INJ 20 MG VIAL IVP PRN ×2 (17:53→23:35)
[2020-05-22] MEDS ORDERED: NORCURON INJ 10 MG VIAL IVP ONE (23:15)
[2020-05-23] MEDS: LR 1000 ML IV 1,000 ML IV SCH ×3 (00:19→19:19)
[2020-05-23] MEDS: DUONEB 0.5 MG/3 MG (3 mL) NEB SCH ×5 (01:04→20:40)
[2020-05-23] MEDS: LOPRESSOR INJ 5 MG AMP IVP PRN ×2 (02:51→10:15)
[2020-05-23] MEDS: ASCORBIC ACID INJ MULTI-DOSE VIAL 1,500 MG in NS 100 ML IV 100 ML IV SCH ×4 (02:52→21:58)
[2020-05-23 04:48] LABS: ABG BASE EXCESS 17.8 mmol/L (-2.0-2.0)
[2020-05-23 04:49] LABS: ABG HCO3 46.6 mmol/L (22-26)
[2020-05-23] MEDS: DIPRIVAN PREMIX 1 GRAM IV 1,000 MG/100 ML VIAL IV PRN ×2 (06:30→14:53)
[2020-05-23 06:34] LABS: BASOPHILS % (AUTO) 0.3 % (0.2-1.0); HEMATOCRIT 34.3 % (36.0-47.0); HEMOGLOBIN 11.2 g/dL (12.0-16.0); LYMPHOCYTES # (AUTO) 0.7 X10^3/uL (1.3-2.9); LYMPHOCYTES % (AUTO) 4.6 % (21.0-51.0); MEAN CORPUSCULAR HEMOGLOBIN 29.2 pg (27.0-34.0); MEAN CORPUSCULAR HGB CONC 32.7 g/dL (33.0-35.0); MEAN CORPUSCULAR VOLUME 89.1 fL (80.0-100.0); MEAN PLATELET VOLUME 8.4 fL (7.4-11.0); MONOCYTES # (AUTO) 0.8 x10^3/uL (0.3-0.8); MONOCYTES % (AUTO) 5.3 % (0.0-13.0); NEUTROPHILS # (AUTO) 13.6 x10^3/uL (2.2-4.8); NEUTROPHILS % (AUTO) 89.8 % (42.0-75.0); PLATELET COUNT 230 X10^3/uL (150.0-450.0); RED BLOOD COUNT 3.85 X10^6/uL (3.5-5.4); RED CELL DISTRIBUTION WIDTH 14.8 % (11.6-16.5); WHITE BLOOD COUNT 15.1 X10^3/uL (3.6-10.0)
[2020-05-23] MEDS: APRESOLINE INJ 20 MG VIAL IVP PRN ×2 (06:39→16:56)
[2020-05-23 06:54] LABS: ALANINE AMINOTRANSFERASE 15 Units/L (12-78); ALBUMIN 1.9 g/dL (3.4-5.0); ALKALINE PHOSPHATASE 74 Units/L (46-116); ASPARTATE AMINO TRANSFERASE 29 Units/L (15-37); BLOOD UREA NITROGEN 15 mg/dL (7-18); CALCIUM 8.9 mg/dL (8.5-10.1); CHLORIDE 105 mmol/L (98-107); COR CA(FOR HYPOALB) 10.6 mg/dL (8.5-10.1); COR NA(FOR HYPERGLY) 148 mmol/L (136-145); CREATININE 0.31 mg/dL (0.55-1.02); SODIUM 147 mmol/L (136-145); TOTAL PROTEIN 5.8 g/dL (6.4-8.2); eGFR NON BLACK RACES > 60 (>60)
--- NOTE | 2020-05-23 06:59 | RAD ---
History: Pneumonia, COVID-19Study: Single view chestComparison: 05/22/2020FINDINGS/IMPRESSION:There appears to be a a partially visualized endotracheal tube terminating in the neck, above the level of the clavicles. Correlate clinically for malpositioned ETT and reposition as warranted. Right IJ CVL and enteric tube are in place. There are bilateral infiltrates not significantly changed from priorElectronically signed by: COLETTE ESQUIVEL (May 23, 2020 06:57:29)
[2020-05-23] MEDS: K-RIDER 10 MEQ/NS 100 ML 10 MEQ/100 ML BAG IV PRN ×2 (07:30→12:30)
[2020-05-23] MEDS ORDERED: SALINE 3% 15 ML NEB TX ONE ×2 (07:56→08:10)
[2020-05-23] MEDS: BENICAR TAB 40 MG PO SCH ×2 (08:57→10:47)
[2020-05-23] MEDS: NORCURON INJ 10 MG VIAL 50 MG in NS 50 ML IV 50 ML IV PRN ×2 (09:28→22:55)
[2020-05-23] MEDS: LOVENOX INJ 40 MG SYR SC SCH ×2 (10:10→21:05)
[2020-05-23] MEDS: DECADRON INJ IVP SCH (10:11)
--- NOTE | 2020-05-23 10:11 | RAD ---
HISTORY:NG tube placementStudy: Single view chestComparison:05/23/2020FINDINGS/IMPRESSION:Enteric tube terminates in the stomach. Endotracheal tu be has been advanced into better position. Stable appearance of the bilateral lung opacities. No pneu mothorax identified.Electronically signed by: COLETTE ESQUIVEL (May 23, 2020 10:09:44)
[2020-05-23] MEDS: VIBRAMYCIN 100 MG in D5W 250 ML IV 250 ML IV SCH ×2 (10:14→23:06)
[2020-05-23] MEDS: THIAMINE HCL INJ IVP SCH ×2 (10:14→21:05)
[2020-05-23] MEDS: PEPCID 20 MG IV PREMIX* 20 MG/50 ML BAG IV SCH ×2 (10:14→21:05)
[2020-05-23] MEDS: NORVASC TAB 5 MG PO SCH (10:48)
[2020-05-24] MEDS: DIPRIVAN PREMIX 1 GRAM IV 1,000 MG/100 ML VIAL IV PRN (00:05)
[2020-05-24] MEDS: DUONEB 0.5 MG/3 MG (3 mL) NEB SCH ×7 (00:20→20:49)
[2020-05-24] MEDS: LR 1000 ML IV 1,000 ML IV SCH ×3 (02:34→20:46)
[2020-05-24] MEDS: ASCORBIC ACID INJ MULTI-DOSE VIAL 1,500 MG in NS 100 ML IV 100 ML IV SCH ×4 (02:55→20:46)
[2020-05-24 04:35] LABS: ABG BASE EXCESS 16.4 mmol/L (-2.0-2.0)
[2020-05-24 04:36] LABS: ABG HCO3 44.4 mmol/L (22-26)
[2020-05-24 06:55] LABS: ALANINE AMINOTRANSFERASE 15 Units/L (12-78); ALKALINE PHOSPHATASE 68 Units/L (46-116); ASPARTATE AMINO TRANSFERASE 24 Units/L (15-37); BLOOD UREA NITROGEN 19 mg/dL (7-18); CALCIUM 8.7 mg/dL (8.5-10.1); CARBON DIOXIDE 39.6 mmol/L (21-32); CHLORIDE 103 mmol/L (98-107); COR CA(FOR HYPOALB) 10.3 mg/dL (8.5-10.1); COR NA(FOR HYPERGLY) 145 mmol/L (136-145); CREATININE 0.41 mg/dL (0.55-1.02); SODIUM 144 mmol/L (136-145); TOTAL PROTEIN 5.8 g/dL (6.4-8.2); eGFR NON BLACK RACES > 60 (>60)
[2020-05-24 06:58] LABS: BASOPHILS # (AUTO) 0.1 X10^3/uL (0.0-0.1); BASOPHILS % (AUTO) 0.5 % (0.2-1.0); HEMATOCRIT 31.6 % (36.0-47.0); HEMOGLOBIN 10.5 g/dL (12.0-16.0); LYMPHOCYTES # (AUTO) 0.9 X10^3/uL (1.3-2.9); MEAN CORPUSCULAR HEMOGLOBIN 29.4 pg (27.0-34.0); MEAN CORPUSCULAR HGB CONC 33.3 g/dL (33.0-35.0); MEAN CORPUSCULAR VOLUME 88.4 fL (80.0-100.0); MEAN PLATELET VOLUME 8.8 fL (7.4-11.0); MONOCYTES # (AUTO) 0.9 x10^3/uL (0.3-0.8); MONOCYTES % (AUTO) 5.7 % (0.0-13.0); NEUTROPHILS # (AUTO) 13.4 x10^3/uL (2.2-4.8); NEUTROPHILS % (AUTO) 87.8 % (42.0-75.0); PLATELET COUNT 194 X10^3/uL (150.0-450.0); RED BLOOD COUNT 3.57 X10^6/uL (3.5-5.4); RED CELL DISTRIBUTION WIDTH 15.3 % (11.6-16.5); WHITE BLOOD COUNT 15.3 X10^3/uL (3.6-10.0)
--- NOTE | 2020-05-24 07:41 | RAD ---
HISTORYPNEUMONIA, COVID+STUDYCHEST, 1 [id number]/17/2021FINDINGSLarge bilateral areas of abnormal opacity are compatible with pneumonia. Probably not changed from yesterday when accounting for differences in technique.No pleural effusion or pneumothorax.Heart size is normal.Bones are unremarkable.The endotracheal tube is anatomic in position in the trachea. The enteric tube extends into the upper abdomen. Right jugular central venous catheter is in the expected location of the superior vena cava. EKG leads are noted.IMPRESSION1. Unchanged pneumoniaElectronically signed by: Edouard Benton (May 24, 2020 07:40:07)
[2020-05-24] MEDS: VIBRAMYCIN 100 MG in D5W 250 ML IV 250 ML IV SCH ×2 (09:21→20:49)
[2020-05-24] MEDS: THIAMINE HCL INJ IVP SCH ×2 (09:22→20:49)
[2020-05-24] MEDS: PEPCID 20 MG IV PREMIX* 20 MG/50 ML BAG IV SCH ×2 (09:22→20:49)
[2020-05-24] MEDS: NORVASC TAB 5 MG PO SCH (09:23)
[2020-05-24] MEDS: LOVENOX INJ 40 MG SYR SC SCH ×2 (09:23→20:47)
[2020-05-24] MEDS: BENICAR TAB 40 MG PO SCH (09:24)
[2020-05-24] MEDS: DECADRON INJ IVP SCH (09:24)
[2020-05-24] MEDS: NORCURON INJ 10 MG VIAL 50 MG in NS 50 ML IV 50 ML IV PRN ×2 (09:41→20:29)
[2020-05-24] MEDS: APRESOLINE INJ 20 MG VIAL IVP PRN (20:31)
[2020-05-25] MEDS: LOPRESSOR INJ 5 MG AMP IVP PRN (00:37)
[2020-05-25] MEDS: DUONEB 0.5 MG/3 MG (3 mL) NEB SCH ×6 (00:50→21:16)
[2020-05-25] MEDS: ASCORBIC ACID INJ MULTI-DOSE VIAL 1,500 MG in NS 100 ML IV 100 ML IV SCH ×5 (02:10→21:20)
[2020-05-25] MEDS: LR 1000 ML IV 1,000 ML IV SCH ×2 (04:09→18:28)
[2020-05-25] MEDS: DIPRIVAN PREMIX 1 GRAM IV 1,000 MG/100 ML VIAL IV PRN ×2 (04:10→12:34)
[2020-05-25 04:26] LABS: ABG BASE EXCESS 21.9 mmol/L (-2.0-2.0)
[2020-05-25 04:27] LABS: ABG HCO3 51.5 mmol/L (22-26)
[2020-05-25] MEDS: APRESOLINE INJ 20 MG VIAL IVP PRN (04:39)
[2020-05-25 05:42] LABS: BASOPHILS % (AUTO) 0.2 % (0.2-1.0); EOSINOPHILS % (AUTO) 0.1 % (0.9-2.9); HEMATOCRIT 31.1 % (36.0-47.0); HEMOGLOBIN 10.3 g/dL (12.0-16.0); LYMPHOCYTES # (AUTO) 1.2 X10^3/uL (1.3-2.9); LYMPHOCYTES % (AUTO) 8.2 % (21.0-51.0); MEAN CORPUSCULAR HEMOGLOBIN 29.4 pg (27.0-34.0); MEAN CORPUSCULAR HGB CONC 33.1 g/dL (33.0-35.0); MEAN CORPUSCULAR VOLUME 88.8 fL (80.0-100.0); MEAN PLATELET VOLUME 8.5 fL (7.4-11.0); MONOCYTES # (AUTO) 0.8 x10^3/uL (0.3-0.8); MONOCYTES % (AUTO) 5.7 % (0.0-13.0); NEUTROPHILS # (AUTO) 12.2 x10^3/uL (2.2-4.8); NEUTROPHILS % (AUTO) 85.8 % (42.0-75.0); PLATELET COUNT 186 X10^3/uL (150.0-450.0); RED CELL DISTRIBUTION WIDTH 14.9 % (11.6-16.5); WHITE BLOOD COUNT 14.2 X10^3/uL (3.6-10.0)
[2020-05-25 05:56] LABS: ALANINE AMINOTRANSFERASE 20 Units/L (12-78); ALKALINE PHOSPHATASE 68 Units/L (46-116); ASPARTATE AMINO TRANSFERASE 28 Units/L (15-37); BLOOD UREA NITROGEN 15 mg/dL (7-18); CALCIUM 8.7 mg/dL (8.5-10.1); CHLORIDE 102 mmol/L (98-107); COR CA(FOR HYPOALB) 10.3 mg/dL (8.5-10.1); COR NA(FOR HYPERGLY) 144 mmol/L (136-145); CREATININE 0.32 mg/dL (0.55-1.02); MAGNESIUM 2.1 mg/dL (1.7-2.9); SODIUM 144 mmol/L (136-145); TOTAL PROTEIN 5.7 g/dL (6.4-8.2); eGFR NON BLACK RACES > 60 (>60)
[2020-05-25 06:14] LABS: CARBON DIOXIDE 42.4 mmol/L (21-32)
--- NOTE | 2020-05-25 07:31 | RAD ---
HISTORYFollow-up COVID-19STUDYChest AP [id number]/18/2021FINDINGSPatient is rotated to the left. There is an endotracheal tube hig h in the trachea at the T1 level. Advancement of 3-4 cm should be considered for optimal performance. Heart is within normal limits in size. No congestive heart failure is noted. Diffuse bilateral inter stitial and ground-glass infiltrates are again identified not significantly changed from the prior ex amination considering a difference in film technique. No pleural effusions are identified. Bony thora x is unremarkable.IMPRESSIONHigh position of the endotracheal tube. Advancement of 3-4 cm should be c onsidered for optimal performanceNo change diffuse bilateral interstitial and ground-glass infiltrate sElectronically signed by: LETY ROBERTSON (May 25, 2020 07:29:16)
[2020-05-25] MEDS: LOVENOX INJ 40 MG SYR SC SCH ×2 (10:12→20:55)
[2020-05-25] MEDS: DECADRON INJ IVP SCH (10:12)
[2020-05-25] MEDS: BENICAR TAB 40 MG PO SCH (10:12)
[2020-05-25] MEDS: NORVASC TAB 5 MG PO SCH (10:13)
[2020-05-25] MEDS: PEPCID 20 MG IV PREMIX* 20 MG/50 ML BAG IV SCH ×2 (10:13→20:55)
[2020-05-25] MEDS: VIBRAMYCIN 100 MG in D5W 250 ML IV 250 ML IV SCH ×2 (10:13→23:00)
[2020-05-25] MEDS: THIAMINE HCL INJ IVP SCH ×2 (10:13→20:55)
[2020-05-25 10:41] LABS: CKMB % 0.9 % (<4); CREATINE KINASE MB 1.2 ng/mL (0-4.0); TROPONIN I 0.04 ng/mL (0-1.5)
[2020-05-25] MEDS: NORCURON INJ 10 MG VIAL 50 MG in NS 50 ML IV 50 ML IV PRN (18:25)
[2020-05-25] MEDS: COREG TAB 25 MG PO SCH (20:55)
[2020-05-25] MEDS ORDERED: DOPAMINE IV PREMIX 400 MG/250 ML 400 MG/250 ML BAG IV ONE (21:33)
[2020-05-25] MEDS: DOPAMINE IV PREMIX 400 MG/250 ML 400 MG/250 ML BAG IV PRN (21:34)
[2020-05-25] MEDS ORDERED: D5W 250 ML IV 250 ML IV ONE (21:52)
[2020-05-25] MEDS ORDERED: LEVOPHED INJ ONE ×2 (21:52)
[2020-05-25] MEDS ORDERED: LEVOPHED INJ 8 MG in D5W 250 ML IV 242 ML IV PRN (22:19)
[2020-05-26] MEDS: DUONEB 0.5 MG/3 MG (3 mL) NEB SCH ×5 (01:00→17:28)
[2020-05-26] MEDS ORDERED: NS 500 ML IV 500 ML IV ONE (02:23)
[2020-05-26] MEDS: ASCORBIC ACID INJ MULTI-DOSE VIAL 1,500 MG in NS 100 ML IV 100 ML IV SCH ×3 (02:55→15:42)
[2020-05-26] MEDS: DOPAMINE IV PREMIX 400 MG/250 ML 400 MG/250 ML BAG IV PRN (02:57)
[2020-05-26] MEDS: LR 1000 ML IV 1,000 ML IV SCH ×2 (05:30→19:56)
[2020-05-26] MEDS: NORCURON INJ 10 MG VIAL 50 MG in NS 50 ML IV 50 ML IV PRN (05:31)
[2020-05-26 06:09] LABS: ABG BASE EXCESS 22.2 mmol/L (-2.0-2.0)
[2020-05-26 06:10] LABS: ABG HCO3 51.2 mmol/L (22-26)
[2020-05-26 06:12] LABS: BASOPHILS % (AUTO) 0.2 % (0.2-1.0); EOSINOPHILS % (AUTO) 0.1 % (0.9-2.9); HEMATOCRIT 28.8 % (36.0-47.0); HEMOGLOBIN 9.6 g/dL (12.0-16.0); LYMPHOCYTES # (AUTO) 1.4 X10^3/uL (1.3-2.9); MEAN CORPUSCULAR HEMOGLOBIN 29.4 pg (27.0-34.0); MEAN CORPUSCULAR HGB CONC 33.5 g/dL (33.0-35.0); MEAN CORPUSCULAR VOLUME 87.8 fL (80.0-100.0); MEAN PLATELET VOLUME 8.9 fL (7.4-11.0); MONOCYTES # (AUTO) 0.8 x10^3/uL (0.3-0.8); MONOCYTES % (AUTO) 4.2 % (0.0-13.0); NEUTROPHILS # (AUTO) 17.5 x10^3/uL (2.2-4.8); NEUTROPHILS % (AUTO) 88.5 % (42.0-75.0); PLATELET COUNT 199 X10^3/uL (150.0-450.0); RED BLOOD COUNT 3.28 X10^6/uL (3.5-5.4); WHITE BLOOD COUNT 19.8 X10^3/uL (3.6-10.0)
[2020-05-26 06:34] LABS: ALANINE AMINOTRANSFERASE 27 Units/L (12-78); ALBUMIN 2.1 g/dL (3.4-5.0); ALKALINE PHOSPHATASE 66 Units/L (46-116); ASPARTATE AMINO TRANSFERASE 33 Units/L (15-37); BLOOD UREA NITROGEN 16 mg/dL (7-18); CALCIUM 8.4 mg/dL (8.5-10.1); CHLORIDE 99 mmol/L (98-107); COR CA(FOR HYPOALB) 9.9 mg/dL (8.5-10.1); COR NA(FOR HYPERGLY) 143 mmol/L (136-145); CREATININE 0.41 mg/dL (0.55-1.02); MAGNESIUM 1.9 mg/dL (1.7-2.9); SODIUM 142 mmol/L (136-145); TOTAL PROTEIN 5.6 g/dL (6.4-8.2); eGFR NON BLACK RACES > 60 (>60)
--- NOTE | 2020-05-26 06:34 | RAD ---
HISTORYFollow-up COVID-19, respiratory failureSTUDYChest AP [id number]/2021FINDINGSPatient is rotated slightly to the left. There is an endotracheal tube in good position. There is a nasogastric tube present in good position. There is a right IJ debby e in good position. Heart size is normal. Bilateral interstitial and ground-glass infiltrates are unc hanged considering a difference in film technique. There is a focus of consolidation in the retrocard iac area of the left lower lobe also unchanged. No pleural effusions are identified. Bony thorax is u nremarkable.IMPRESSIONNo change diffuse bilateral interstitial and ground-glass infiltrates with a sm all focus of consolidation in the retrocardiac left lower lobeElectronically signed by: LETY ROBERTSON (May 26, 2020 06:32:22)
[2020-05-26 06:50] LABS: CARBON DIOXIDE 41.3 mmol/L (21-32)
[2020-05-26] MEDS ORDERED: IVERMECTIN PO SCH (09:00)
[2020-05-26] MEDS: DECADRON INJ IVP SCH (09:14)
[2020-05-26] MEDS: LOVENOX INJ 40 MG SYR SC SCH (09:14)
[2020-05-26] MEDS: THIAMINE HCL INJ IVP SCH (09:15)
[2020-05-26] MEDS: VIBRAMYCIN 100 MG in D5W 250 ML IV 250 ML IV SCH (09:15)
[2020-05-26] MEDS: PEPCID 20 MG IV PREMIX* 20 MG/50 ML BAG IV SCH (09:16)
[2020-05-26] MEDS ORDERED: LEVAQUIN PREMIX IV 750 MG 750 MG/150 ML BAG IV SCH (10:00)
[2020-05-26] MEDS: COREG TAB 25 MG PO SCH (13:36)
[2020-05-26] MEDS: BENICAR TAB 40 MG PO SCH (13:36)
[2020-05-26] MEDS: NORVASC TAB 5 MG PO SCH (13:36)
[2020-05-26 18:08] VITALS: BP 160/69
[2020-06-11 14:53] LABS: ABG HCO3 50.6 mmol/L (22-26)
== END 2020-05-26 21:00 | disposition short-term general hospital (02) | DRG 177 ==
LOC: ER 19:58 → OBS 05-07 08:48 → MED/SURG 05-07 15:58 → ICU 05-13 18:43
PROVIDERS: ADMIT Obstetrics & Gynecology Obstetrics; ATTEND Obstetrics & Gynecology Obstetrics
DX: Z78.1 Physical restraint status; R26.89 Other abnormalities of gait and mobility; U07.1 COVID-19; I10 Essential (primary) hypertension; L89.152 Pressure ulcer of sacral region, stage 2; J12.89 Other viral pneumonia; J96.01 Acute respiratory failure with hypoxia; Z86.73 Personal history of transient ischemic attack (TIA), and cerebral infarction without residual deficits; R94.31 Abnormal electrocardiogram [ECG] [EKG]